=== PATIENT | male | born 1940 | race Caucasian/White ===

== ENCOUNTER 2018-01-26 07:46 | Day surgery (SDC) | payer MEDICARE, OTHER ==
[~2018-01-26] VITALS: Ht 177.8 cm; Wt 103.8 kg
[~2018-01-26 07:46] MED LIST: ALBU90OI6; AMLO10; ASPI81CH; CILO50; CLOP75; CLOP75 PO; EFFIENT10 MG PO; GLIM4; HYDACE10B; INSULANPEN SC; LISHYD2025; LOVA40; METF500; METO50; OMEP20ER; PLETAL
== END 2018-01-26 10:25 | disposition home or self-care (01) ==
LOC: ORSCSDS 07:46
PROVIDERS: Surgery
PROC: 0DBK8ZX Excision of Ascending Colon, Via Natural or Artificial Opening Endoscopic, Diagnostic (ICD-10-PCS; principal; 2018-01-26 09:45)
DX: Z12.11 Encounter for screening for malignant neoplasm of colon (principal); D12.2 Benign neoplasm of ascending colon; Z85.038 Personal history of other malignant neoplasm of large intestine; E11.9 Type 2 diabetes mellitus without complications; K21.9 Gastro-esophageal reflux disease without esophagitis; I10 Essential (primary) hypertension; I51.9 Heart disease, unspecified; Z79.01 Long term (current) use of anticoagulants; Z79.82 Long term (current) use of aspirin; Z79.4 Long term (current) use of insulin; Z79.899 Other long term (current) drug therapy
CPT/HCPCS: 82947; 88305; J7120

== ENCOUNTER 2018-04-01 08:34 | Day surgery (SDC) | payer MEDICARE, OTHER ==
[2018-04-01 10:22] LABS: Performing Lab VERACYTE; Test Name FNA
[2018-04-05 15:19] LABS: Result SEE PATHOTH RESULTS
== END 2018-04-01 22:48 | disposition home or self-care (01) ==
LOC: US 08:34
PROVIDERS: Internal Medicine
DX: E04.1 Nontoxic single thyroid nodule (principal); F17.210 Nicotine dependence, cigarettes, uncomplicated; I10 Essential (primary) hypertension; E11.42 Type 2 diabetes mellitus with diabetic polyneuropathy; Z95.5 Presence of coronary angioplasty implant and graft; Z85.46 Personal history of malignant neoplasm of prostate
CPT/HCPCS: 10022; 76942

== ENCOUNTER → 2018-08-13 | Outpatient (CLI) | payer MEDICARE, OTHER ==
[~2018-08-13] MED LIST changes: +AMLO5 PO; +Aspir 8181 MG PO; +Cilostazol50 MG PO; +GLIM4 PO; +LOVA40 PO; +METOPROLOL TART75 MG PO; +Metformin HCl1000 MG PO; +Norco 10-325 T1 EACH PO; +Omeprazole20 M1 PO; +ROPI.25 PO; +ZESTORETIC 20-251 EA PO
[2018-08-14 14:44] LABS: Stool Occult Bld Immuno 1 Negative (NEGATIVE)
== END | disposition home or self-care (01) ==
LOC: LAB 12:29 → LAB SHORT 12:29
PROVIDERS: Internal Medicine Gastroenterology
DX: D64.9 Anemia, unspecified (principal)
CPT/HCPCS: G0328

== ENCOUNTER → 2020-09-07 | Outpatient (CLI) | payer MEDICARE, OTHER | END | disposition home or self-care (01) | LOC: LAB SHORT 10:41 → LAB 10:41 | DX: E11.51 Type 2 diabetes mellitus with diabetic peripheral angiopathy without gangrene (principal); E11.42 Type 2 diabetes mellitus with diabetic polyneuropathy; B35.1 Tinea unguium; I70.213 Atherosclerosis of native arteries of extremities with intermittent claudication, bilateral legs; R20.0 Anesthesia of skin | CPT/HCPCS: 87070; 87077; 87147; 87186; 87205 ==

== ENCOUNTER → 2021-04-02 | Outpatient (CLI) | payer MEDICARE, OTHER ==
[2021-04-02 20:43] LABS: BASOPHILS ABSOLUTE AUTO 0.02 K/mm3 (0.00-0.23); BASOPHILS PERCENT AUTO 0 % (0-2); EOSINOPHILS PERCENT AUTO 0 % (0-6); Hematocrit 30.8 % (37.0-53.0); Hemoglobin 10.6 g/dL (13.5-17.5); IMMATURE GRAN ABSOLUTE AUTO 0.04 K/mm3 (0.00-0.10); IMMATURE GRAN PERCENT AUTO 0 % (0-1); LYMPHOCYTES ABSOLUTE AUTO 0.58 K/mm3 (0.84-5.20); LYMPHOCYTES PERCENT AUTO 5 % (21-46); MONOCYTES ABSOLUTE AUTO 0.74 K/mm3 (0.16-1.47); MONOCYTES PERCENT AUTO 7 % (4-13); Mean Corpuscular HGB Conc 34.4 g/dL (31.5-36.5); Mean Corpuscular Volume 90 fL (80-100); Mean Platelet Volume 11.7 fL (9.1-12.4); NEUTROPHILS ABSOLUTE AUTO 9.33 K/mm3 (1.96-9.15); NEUTROPHILS PERCENT AUTO 87 % (41-73); Platelet Count 258 K/mm3 (150-400); RDW Coefficient Variation 12.1 % (11.7-14.2); RDW Standard Deviation 39.9 fL (35.1-46.3); Red Blood Cell Count 3.42 M/mm3 (4.30-5.90); White Blood Cell Count 10.71 K/mm3 (4.00-11.30)
[2021-04-02 21:00] LABS: Albumin, Blood 1.9 g/dL (3.4-5.0); Albumin/Globulin Ratio 0.5 (0.8-1.8); Bilirubin, Total 0.3 mg/dL (0.1-1.0); Bun/Creatinine Ratio 17.3 (12.0-20.0); Calcium, Blood 8.2 mg/dL (8.5-10.1); Creatinine, Blood 1.33 mg/dL (0.60-1.20); Globulin, Blood 4.1 g/dL (2.2-4.0); Potassium, Blood 3.4 mmol/L (3.5-5.5)
== END | disposition home or self-care (01) ==
LOC: LAB SHORT 20:32 → LAB 20:32
PROVIDERS: Physician Assistant Medical
DX: J96.01 Acute respiratory failure with hypoxia (principal)
CPT/HCPCS: 80053; 85025

== ENCOUNTER → 2021-04-03 | Outpatient (CLI) | payer MEDICARE, OTHER ==
[~2021-04-03] MED LIST changes: +AMLODIPINE BESYL5 MG PO; +CILOSTAZOL PO; +GLIMEPIRIDE4 MG PO; +HYDROCODONE-AC1 EAC7 PO; +LISI20 PO; +LOVASTATIN40 MG PO; +METFORMIN HCL500 M2 PO; +METOPROLOL TART50 M5 PO; +MS Contin15 MG PO; +OMEP20ER PO; +PLAVIX75 MG PO
== END | disposition home or self-care (01) ==
LOC: LAB SHORT 13:27
DX: U07.1 COVID-19 (principal); J12.82 Pneumonia due to coronavirus disease 2019
CPT/HCPCS: 85379

== ENCOUNTER 2021-04-05 10:54 | Inpatient (IN) | payer MEDICARE, OTHER ==
[~2021-04-05] VITALS: Ht 177.8 cm; Wt 100.5 kg
[~2021-04-05 10:54] MED LIST changes: -AMLODIPINE BESYL5 MG PO; -CILOSTAZOL PO; -GLIMEPIRIDE4 MG PO; -HYDROCODONE-AC1 EAC7 PO; -LISI20 PO; -LOVASTATIN40 MG PO; -METFORMIN HCL500 M2 PO; -METOPROLOL TART50 M5 PO; -MS Contin15 MG PO; -OMEP20ER PO; -PLAVIX75 MG PO
[2021-04-05 11:17] LABS: BASOPHILS ABSOLUTE AUTO 0.01 K/mm3 (0.00-0.23); BASOPHILS PERCENT AUTO 0 % (0-2); EOSINOPHILS PERCENT AUTO 0 % (0-6); Hemoglobin 10.9 g/dL (13.5-17.5); IMMATURE GRAN ABSOLUTE AUTO 0.05 K/mm3 (0.00-0.10); IMMATURE GRAN PERCENT AUTO 1 % (0-1); LYMPHOCYTES ABSOLUTE AUTO 0.57 K/mm3 (0.84-5.20); LYMPHOCYTES PERCENT AUTO 6 % (21-46); MONOCYTES ABSOLUTE AUTO 0.43 K/mm3 (0.16-1.47); MONOCYTES PERCENT AUTO 4 % (4-13); Mean Corpuscular HGB 31.2 pg (26.0-34.0); Mean Corpuscular HGB Conc 35.2 g/dL (31.5-36.5); Mean Corpuscular Volume 89 fL (80-100); Mean Platelet Volume 11.4 fL (9.1-12.4); NEUTROPHILS ABSOLUTE AUTO 8.64 K/mm3 (1.96-9.15); NEUTROPHILS PERCENT AUTO 89 % (41-73); Platelet Count 278 K/mm3 (150-400); RDW Coefficient Variation 12.2 % (11.7-14.2); RDW Standard Deviation 40.1 fL (35.1-46.3); Red Blood Cell Count 3.49 M/mm3 (4.30-5.90)
[2021-04-05] MEDS ORDERED: MS Contin15 MG PO (12:27)
[2021-04-05] MEDS ORDERED: METFORMIN HCL500 M2 PO (12:27)
[2021-04-05] MEDS ORDERED: GLIMEPIRIDE4 MG PO (12:28)
[2021-04-05] MEDS ORDERED: LOVASTATIN40 MG PO (12:28)
[2021-04-05] MEDS ORDERED: CILOSTAZOL PO (12:28)
[2021-04-05] MEDS ORDERED: HYDROCODONE-AC1 EAC7 PO (12:28)
[2021-04-05] MEDS ORDERED: OMEP20ER PO (12:29)
[2021-04-05] MEDS ORDERED: METOPROLOL TART50 M5 PO (12:29)
[2021-04-05] MEDS ORDERED: AMLODIPINE BESYL5 MG PO (12:29)
[2021-04-05] MEDS ORDERED: LISI20 PO (12:29)
[2021-04-05] MEDS ORDERED: PLAVIX75 MG PO (12:29)
[2021-04-05 12:31] LABS: Albumin, Blood 1.7 g/dL (3.4-5.0); Albumin/Globulin Ratio 0.4 (0.8-1.8); Bilirubin, Total 0.3 mg/dL (0.1-1.0); Bun/Creatinine Ratio 20.5 (12.0-20.0); Calcium, Blood 8.1 mg/dL (8.5-10.1); Creatinine, Blood 1.61 mg/dL (0.60-1.20); Globulin, Blood 4.2 g/dL (2.2-4.0); Potassium, Blood 3.2 mmol/L (3.5-5.5); Total Protein, Blood 5.9 g/dL (6.4-8.2)
[2021-04-05 12:39] LABS: Troponin I 1.03 ng/mL (0.000-0.040)
--- NOTE | 2021-04-05 17:46 | NUR ---
[id number]: PT ARRIVED FROM THE ED WITH COVID WITH WORSENING CXR, HE IS FULLY VACCINATED WITH MODERNA, HE ARRIVES ON HIGH FLOW O2 AT 55L/85%, SPO2 IN THE MID 90S, PT IS EXTREMELY WEAK, HAVING TROUBLE EVEN LIFTING ARMS AND LEGS ON BED, HE STATES THAT HE FELL AT HOME 2 DAYS AGO AND HAS A SKIN TEAR ON HIS RFA, THIS IS WRAPPED CURRENTLY. PT PLACED ON MONITOR, NSR WITH HR IN THE 90S, OCCASIONAL PVCS, PT MODERATELY HYPERTENSIVE, TROPONIN LEVEL WAS POSITIVE AND PT HAS A HX OF CAD WITH PREVIOUS STENTING, HE DENIES CHEST PAIN OR DISCOMFORT, SECOND TROPONIN DRAWN AND WILL REPEAT AT 2300. PT WAS HYPOGLYCEMIC IN THE ED, BLOOD SUGAR OF 56, HAD SOME JUICE AND YOGURT AND CBG JUST PRIOR TO ARRIVAL WAS 85. PT RECEIVED FIRST DOSE OF REMDESIVIR IN THE ED
[2021-04-05 23:15] LABS: Source, Urine Clean Catch
--- NOTE | 2021-04-05 23:22 | NUR ---
BRAN PLACEMENT 16 FR BRAN CATHETER PLACED, STERILE FIELD MAINTAINED, 900 ML'S CLEAR YELLOW URINE EMPTIED FROM COLLECTION BAG, URINE SAMPLE SENT.
[2021-04-05 23:28] LABS: Bilirubin, Urine Neg (Neg); Blood, Urine 1+ (Neg); Glucose Qualitative, Urine Neg (Neg); Ketones, Urine Neg (Neg); Leukocyte Esterase, Urine Neg (Neg); Nitrite, Urine Neg (Neg); Protein, Urine 4+ (Neg); Specific Gravity, Urine 1.015 (1.003-1.022); Urobilinogen, Urine NORM (Normal)
[2021-04-05 23:46] LABS: Amorphous Light (0-Heavy); Appearance, Urine Clear (Clear); Bacteria Not Seen /hpf; Color, Urine Yellow (P-Yellow); Squamous Epithelial Cells Not Seen /hpf (Few); White Blood Cells, Urine Rare /hpf (0-5)
--- NOTE | 2021-04-06 01:51 | NUR ---
HOSPITALIST NOTIFIED PT'S RESP STATUS IS SLOWLY DECREASING. PT IS GETTING TIRED & RESP EFFORT IS WEAK. SPO2 FLUCTUATES BETWEEN 85-92%. PT WILL COUGH & DB WITH EXTENSIVE ENC, COUGH IS PRODUCTIVE, MUCOUS THICK,PINK TINGED. PT FALLS RIGHT BACK TO SLEEP AFTER ANY STIMULATION. RESPIRATIONS 24-35/MIN. LUNG SOUNDS REMAIN COARSE/DIM IN BILATERAL BASES. RT NOTIFED, BIPAP PLACED 06/10.
[2021-04-06 03:55] LABS: Base Excess Venous -0.7 mmol/L; Bicarbonate Venous 23.3 mmol/L (24.0-30.0); PCO2 Venous 36.2 mmHg (38-42); PO2 Venous 30.4 mmHg (38-42); pH Blood Venous 7.42 (7.34-7.37)
[2021-04-06 04:22] LABS: BASOPHILS ABSOLUTE AUTO 0.01 K/mm3 (0.00-0.23); BASOPHILS PERCENT AUTO 0 % (0-2); EOSINOPHILS PERCENT AUTO 0 % (0-6); Hematocrit 33.4 % (37.0-53.0); Hemoglobin 11.3 g/dL (13.5-17.5); IMMATURE GRAN ABSOLUTE AUTO 0.06 K/mm3 (0.00-0.10); IMMATURE GRAN PERCENT AUTO 1 % (0-1); LYMPHOCYTES ABSOLUTE AUTO 0.66 K/mm3 (0.84-5.20); LYMPHOCYTES PERCENT AUTO 7 % (21-46); MONOCYTES ABSOLUTE AUTO 0.34 K/mm3 (0.16-1.47); MONOCYTES PERCENT AUTO 3 % (4-13); Mean Corpuscular HGB 30.1 pg (26.0-34.0); Mean Corpuscular HGB Conc 33.8 g/dL (31.5-36.5); Mean Corpuscular Volume 89 fL (80-100); Mean Platelet Volume 11.5 fL (9.1-12.4); NEUTROPHILS ABSOLUTE AUTO 8.79 K/mm3 (1.96-9.15); NEUTROPHILS PERCENT AUTO 89 % (41-73); Platelet Count 271 K/mm3 (150-400); RDW Coefficient Variation 12.3 % (11.7-14.2); RDW Standard Deviation 40.3 fL (35.1-46.3); Red Blood Cell Count 3.76 M/mm3 (4.30-5.90); White Blood Cell Count 9.86 K/mm3 (4.00-11.30)
[2021-04-06 04:47] LABS: Albumin, Blood 1.7 g/dL (3.4-5.0); Albumin/Globulin Ratio 0.4 (0.8-1.8); Bilirubin, Total 0.5 mg/dL (0.1-1.0); Bun/Creatinine Ratio 22.6 (12.0-20.0); Calcium, Blood 8.4 mg/dL (8.5-10.1); Creatinine, Blood 1.37 mg/dL (0.60-1.20); Globulin, Blood 4.4 g/dL (2.2-4.0); Magnesium, Blood 2.1 mg/dL (1.6-2.4); Potassium, Blood 3.6 mmol/L (3.5-5.5); Total Protein, Blood 6.1 g/dL (6.4-8.2)
--- NOTE | 2021-04-06 06:36 | NUR ---
SHIFT SUMMARY PT REMAINS A&O X3. PT WAS PLACED ON BIPAP THROUGH THE NIGHT DUE TO DECREASED RESP EFFORT & DESATURATION. BIPAP 12/8 FIO2 80%, LUNGS DIMISHED/COARSE BILATERAL. SPO2 REMAINS >90% AFTER BIAP PLACEMENT. RESP 24-35, PT AWAKE THIS AM & APPEARS TO BE MORE RESTED. PT IS TOLERATING PO INTAKE WHILE AWAKE WITH NO SWALLOWNG PROBLEMS. BP REMAINS ELEVATED, 10 MG IV HYDRALIZINE GIVEN X2, NS INFUSING PER EMAR, BRAN REMAINS PATENT, CLEAR YELLOW URINE NOTED. PT REPOSITIONED Q2 HRS. DENIES PAIN. CALL LIGHT IN REACH. WILL REPORT TO DAY RN.
--- NOTE | 2021-04-06 10:19 | NUR ---
PHONE UPDATE PROVIDED TO PT'S DAUGHTER ZUHAIR WITH OTHER DAUGHTER AND ON SPEAKER PHONE, QUESTIONS ANSWERED TO SATISFACTION.
--- NOTE | 2021-04-06 18:18 | NUR ---
SHIFT SUMMARY PT ON BIPAP THIS SHIFT, WOULD ONLY TOLERATE COMING OFF OF THE BIPAP OVER TO AIRVO FOR MINUTES AT A TIME BEFORE O2 SATURATION WOULD DROP TO LOW 70s/HIGH 60s. END OF SHIFT BIPAP SETTINGS 95% O2, 18/04. PT REMAINS ALERT AND ORIENTED THROUGHOUT THE SHIFT, ABLE TO HOLD SHORT CONVERSATIONS WITH STAFF D/T BIPAP MASK. EDUCATED ON THE IMPORTANCE OF REPOSITIONING AND DEEP BREATHING, PT ASSISTED WITH REPOSITIONING TO ALTERNATING SIDES T/O SHIFT. PT HAD PRODUCTIVE COUGH AT TIMES, BROWN/PINK SPUTUM NOTED. BRAN DRAINING TO GRAVITY, CLEAR YELLOW URINE OUTPUT NOTED.
[2021-04-07 04:08] LABS: Base Excess Venous -4.1 mmol/L; PCO2 Venous 26.1 mmHg (38-42); PO2 Venous 79.1 mmHg (38-42); pH Blood Venous 7.48 (7.34-7.37)
[2021-04-07 04:29] LABS: Hematocrit 32.2 % (37.0-53.0); Hemoglobin 10.8 g/dL (13.5-17.5); Mean Corpuscular HGB 30.4 pg (26.0-34.0); Mean Corpuscular HGB Conc 33.5 g/dL (31.5-36.5); Mean Corpuscular Volume 91 fL (80-100); Mean Platelet Volume 11.7 fL (9.1-12.4); Platelet Count 250 K/mm3 (150-400); RDW Coefficient Variation 12.5 % (11.7-14.2); RDW Standard Deviation 42.2 fL (35.1-46.3); Red Blood Cell Count 3.55 M/mm3 (4.30-5.90); White Blood Cell Count 7.94 K/mm3 (4.00-11.30)
--- NOTE | 2021-04-07 04:47 | NUR ---
WAS ABLE TO TITRATE PT'S BIPAP SETTINGS TO BIPAP 14/10 FIO2 85% WITH SATS OF 95%. WILL CONTINUE TO MONITOR.
[2021-04-07 04:50] LABS: Bun/Creatinine Ratio 30.8 (12.0-20.0); Creatinine, Blood 1.3 mg/dL (0.60-1.20); Potassium, Blood 3.9 mmol/L (3.5-5.5)
--- NOTE | 2021-04-07 06:10 | NUR ---
SHIFT SUMMARY PT IS ALERT AND ORIENTED. THERE HAVE BEEN NO ACUTE CHANGES. PT HAS TOLERATED WELL BEING ON BIPAP. HE IS CURRENTLY ON 18/04 WITH 80% FIO2 WITH SATS ABOVE 92%. PT WAS ABLET TO TOLERATE THE AIRVO LAST NIGHT FOR A SNACK WITHOUT DESATING. VITALS HAVE REMAINED STABLE. PT DENIES CHEST PAIN/PRESSURE. BRAN IS IN PLACE AND DRAINING TO GRAVITY. CALL LIGHT IS WITHIN REACH. WILL CONTINUE TO MONITOR.
--- NOTE | 2021-04-07 10:23 | NUR ---
PT ABLE TO TOLERATE ORAL INTAKE WITH BREAKFAST WHILE ON AIRVO, SEE RT NOTES FOR SETTIGNS. AT THIS TIME PT O2 DECREASED TO LOW 80S, CHANGED BACK TO BIPAP.
--- NOTE | 2021-04-07 18:07 | NUR ---
SHIFT SUMMARY NO ACUTE EVENTS THIS SHIFT, VSS. PT IS ALERT AND ORIENTED, CALLS APPROPRIATELY. PT REMAINED ON BIPAP THIS SHIFT, ABLE TO TOLERATE BREAKS ON AIRVO FOR ORAL INTAKE AT MEALTIME, BUT APPEARS TO HAVE A POOR APPETITE. END OF SHIFT BIPAP SETTIGNS 18/04 AT 80%. PT DENIED CHEST PAIN/PRESSURE, DENIED OVERAL DISCOMFORT. PT WAS ABLE TO REPOSITION SELF WITH SOME ASSISTANCE FROM STAFF.
[2021-04-08 04:17] LABS: Albumin, Blood 1.4 g/dL (3.4-5.0); Anion Gap 10 mmol/L (6-16); Blood Urea Nitrogen 43 mg/dL (8-24); Bun/Creatinine Ratio 33.3 (12.0-20.0); CO2, Blood 20 mmol/L (21-32); Calcium, Blood 7.9 mg/dL (8.5-10.1); Chloride, Blood 109 mmol/L (98-108); Creatinine, Blood 1.29 mg/dL (0.60-1.20); Glomerular Filtration Rate 54 (60-); Glucose, Blood 317 mg/dL (70-99); Phosphorus, Blood 3.9 mg/dL (2.5-4.9); Potassium, Blood 3.8 mmol/L (3.5-5.5); Sodium, Blood 139 mmol/L (136-145)
--- NOTE | 2021-04-08 05:05 | NUR ---
SHIFT SUMMARY PT A/OX4. ALERT, CALM AND COOPERATIVE. ON BIPAP T/O THE NIGHT FIO2 70% MAINTAINING O2 ABOVE 92%. ON TELE NSR IN THE 70'S. GOOD PO INTAKE. BRAN IN PLACE; YELLOW URINE OUTPUT. CHANGED DRESSING ON RIGHT FOREARM; SKIN TEAR. DRY SKIN; NOTED SMALL BRUISES. REFUSED PRONING EVEN THOUGH EDUCATED ON IMPORTANCE TO HELP WITH BREATHING. DOES HELP LAY ON HIS SIDES. SCD'S IN PLACE; DID REMOVE FOR AWHILE FOR PT COMFORT. NO ACUTE CHANGES. BLOOD SUGARS WERE IN THE HIGH 300'S AND NOTIFIED HOSPITALIST; MED. ORDERS WERE GIVEN. WILL CONT. WITH PLAN OF CARE.
--- NOTE | 2021-04-08 13:32 | NUR ---
PT ALERT AND ORIENTED X3-4. NEURO WNL. DENIES NUMBNESS/TINGLING. ABLE TO MOVE ALL EXTREMITIES IN BED. PERRLA. TELE SHOWING SINUS WITH PAC'S HR 80'S. DENIES CHEST PAIN/PRESSURE. ON BIPAP THIS AM SETTINGS 14/10 AT 70%. ABLE TO TRANSFER TO HIGH FLOW AT 65L AND 70% SATING LOW 90'S. ON HF NC DURING MEALS. LUNGS SOUNDING DIMINISHED. OCCASIONAL COUGH WITH SMITH TINGED SPUTUM. EATING SMALL AMOUNTS OF MEAL, TOLERATING DIET. SKIN OVERALL FRAGILE, SKIN TEAR TO LEFT FOREARM. CLEANED AND WRAPPED. ACHS BLOOD SUGARS, CHANGED TO Q6 BLOOD SUGARS. Q2 TURNING. CALL LIGHT IN REACH. SPOKE WITH DR. MOFFETT ON PHONE FOR UPDATE. BOWEL TONES PRESENT. BRAN CATH IN PLACE DRAINING TO GRAVITY. REMDESIVIR INFUSED. NS INFUSING AT 50 ML/HR. CALL LIGHT IN REACH.
--- NOTE | 2021-04-08 18:32 | NUR ---
SHIFT SUMMARY: NO ACUTE CHANGES SEE PREVIOUS NOTE. BIPAP AND HIGH FLOW NASAL CANNULA SETTINGS REMAIN THE SAME. PATIENT ON HIGH FLOW NASAL CANNULA 65L AT 70-80% FOR MOST OF THE DAY SHIFT SATING LOW 90'S. DENIES OVERALL PAIN. TELE REMAINS SINUS IN THE 80'S. BRAN CATH IN PLACE. NS INFUSING. EATING SMALL AMOUNTS AND DRINKING WATER WITH MEALS. CALL LIGHT IN REACH. WILL CONTINUE TO MONITOR AND REPORT OFF.
[2021-04-09 04:01] LABS: Hemoglobin 11.7 g/dL (13.5-17.5); Mean Corpuscular HGB Conc 33.4 g/dL (31.5-36.5); Mean Corpuscular Volume 90 fL (80-100); Mean Platelet Volume 11.5 fL (9.1-12.4); Platelet Count 327 K/mm3 (150-400); RDW Coefficient Variation 12.7 % (11.7-14.2); RDW Standard Deviation 42.4 fL (35.1-46.3); White Blood Cell Count 12.85 K/mm3 (4.00-11.30)
[2021-04-09 04:21] LABS: Albumin, Blood 1.7 g/dL (3.4-5.0); Anion Gap 9 mmol/L (6-16); Blood Urea Nitrogen 39 mg/dL (8-24); Bun/Creatinine Ratio 34.8 (12.0-20.0); CO2, Blood 20 mmol/L (21-32); Calcium, Blood 8.2 mg/dL (8.5-10.1); Chloride, Blood 113 mmol/L (98-108); Creatinine, Blood 1.12 mg/dL (0.60-1.20); Glomerular Filtration Rate >60 (60-); Glucose, Blood 223 mg/dL (70-99); Phosphorus, Blood 3.6 mg/dL (2.5-4.9); Potassium, Blood 3.8 mmol/L (3.5-5.5); Sodium, Blood 142 mmol/L (136-145)
--- NOTE | 2021-04-09 05:38 | NUR ---
SHIFT SUMMARY PT A/OX3-4 AT TIMES FORGETFUL. CALLS APPROPRIATELY. ON TELE NSR 70'S-80'S. ON HFNC 65L AND 85% FIO2, DOES DESAT QUICKLY IN LOW 80'S-HIGH 70'S AND TAKES 1-2 MINT. WITH 100% FIO2 TO HELP HIM RECOVER. EDUCATED ON IMPORTANCE OF PRONING AND CONT. TO REFUSE. BRAN IN PLACE; YELLOW COLOR URINE. BLOOP PRESSURES REMAINED ELEVATED T/O THE NIGTH; HOSPITALIST WAS NOTIFIED AND MEDS GIVEN PER ORDERS. BUE AND BLE SKIN DRY AND WARM TO TOUCH. DRESSING C/D/I IN R. FA AND PREVENTATIVE FOAM DRESSING ON COCCYX AREA. SCD'S WERE WORN MOST OF THE NIGHT; THIS MORNING WANTED A BREAK. WILL CONT. WITH PLAN OF CARE.
--- NOTE | 2021-04-09 08:00 | NUR ---
pt laying in bed with eyes closed, wakes easily but is drowsy, poor appetite, lungs have exp wheeze t/o, resp even and unlabored at rest, no cough noted, hrr, tele in place running sr with pac's, no edema noted, ppp+1, cap refill <3sec. vs stable, afebrile, iv site is clear and patent, btx4, abd flat soft nontender, voids via vernon cath draining clear yellow urine, skin c/w/d, justin ulloa, call light in reach.
--- NOTE | 2021-04-09 18:20 | NUR ---
PT HAS BEEN SLEEPY ALL DAY, RESTING WHEN LEFT UNDISTURBED, WAS AWAKE AND UNCOMFORTABLE AROUND 1700, GAVE A NORCO WITH GOOD RELIEF, B/P WENT OVER 170 THIS AFTERNOON AND TREATED WITH HYDRALAZINE, POOR APPETITE, ASSISTED WITH EATING TO HELP ENCOURAGE INTAKE, ONLY TOOK 10% OF DINNER. CALL LIGHT IN REACH.
[2021-04-10 03:49] LABS: Hematocrit 34.4 % (37.0-53.0); Hemoglobin 11.5 g/dL (13.5-17.5); Mean Corpuscular HGB 29.9 pg (26.0-34.0); Mean Corpuscular HGB Conc 33.4 g/dL (31.5-36.5); Mean Corpuscular Volume 89 fL (80-100); Mean Platelet Volume 11.5 fL (9.1-12.4); Platelet Count 294 K/mm3 (150-400); RDW Coefficient Variation 13.1 % (11.7-14.2); RDW Standard Deviation 43.2 fL (35.1-46.3); Red Blood Cell Count 3.85 M/mm3 (4.30-5.90); White Blood Cell Count 14.74 K/mm3 (4.00-11.30)
--- NOTE | 2021-04-10 03:57 | NUR ---
PT HAS EPISODES OF DESATURATION WITH BED MOBILIT ASSISTANCE. ON HFNC 60L 80% REQUIRING INCREASE TO 85% WITH ACTIVITY. REQUIRED INCREASE TO 90% AFTER HFNC ACCIDENTALLY REMOVED BY PATIENT. O2 SAT DROPPED TO 76% ON RA. PT AGGREABLE TO USING BIPAP FOR A SHORT TIME AFTER THIS EVENT, THEN RETURNED TO HFNC 60L 90% O2 SAT MAINTAINED 88%. PT EXPRESSING SEVERE HIP/SACRUM/PELVIC PAIN 02/12. ADMINISTERED MS COTIN AND HYDROCODONE. PT EXPRESSES LITTLE RELIEF, BUT IS ABLE TO FALL ASLEEP FOR SHORT PERIODS. BLAWNCHAB;E REDNESS BILATERAL HEELS- KEEP FLOATED- WILL NOTIFY DAY TEAM. sPOKE WITH DAUGHTER ZUHAIR, PT EXPRESSES FEELING TO TIRED TO CALL FAMILY AT NIGHT. PLAN FOR CALL TODAY.
[2021-04-10 04:06] LABS: Albumin, Blood 1.7 g/dL (3.4-5.0); Anion Gap 8 mmol/L (6-16); Blood Urea Nitrogen 44 mg/dL (8-24); Bun/Creatinine Ratio 38.9 (12.0-20.0); CO2, Blood 21 mmol/L (21-32); Calcium, Blood 8.3 mg/dL (8.5-10.1); Chloride, Blood 116 mmol/L (98-108); Creatinine, Blood 1.13 mg/dL (0.60-1.20); Glomerular Filtration Rate >60 (60-); Glucose, Blood 238 mg/dL (70-99); Phosphorus, Blood 3.8 mg/dL (2.5-4.9); Potassium, Blood 3.8 mmol/L (3.5-5.5); Sodium, Blood 145 mmol/L (136-145)
--- NOTE | 2021-04-10 13:40 | NUR ---
UPDATE FAMILY UPDATED ON PT. INGRID MOFFETT IS CONCERNED THAT PT IS BEGINNING TO HAVE DEPRESSION AND WANTED PHYSICIAN UPDATED. FAMILY REQUESTING ZOOM CALL. PHYSICIAN UPDATED. ZOOM CALL TO BE DONE WITH NATIONAL GUARD THIS AFTERNOON. FAMILY REQUESTING DAILY UPDATED FROM PHYSICIAN. PHYSICIAN NOTIFIED.
--- NOTE | 2021-04-10 18:29 | NUR ---
SHIFT SUMMARY PT ALERT. CONFUSED AT TIMES. BED ALARM IN PLACE FOR PT SAFETY. PT HAS POOR PO INTAKE T/O SHIFT. ENCOURAGED INTAKE OF GLUCERNA AND WATER. HR STABLE. BP STABLE. HYPERTENSIVE AT TIMES, MEDICATED PER EMAR. SEE EHR. OXYGEN SATURATION MAINTIANED T/O SHIFT ABOVE 90% ON BIPAP, SEE RT NOTES FOR SETTINGS. PT UNABLE TO TOLERATE EXTENDED PERIODS OF TIME ON AIRVO. PT REFUSING TURNS AND BATH. PT ASSISTING IN BOOSTS IN BED. HEEL PROTECTORS IN PLACE. PT'S FAMILY EXPRESSES CONCERN REGARDING PT BEING UNABLE TO SEE FAMILY MEMBERS. PHYSICIAN FACILITATED FACETIME CALL FOR PT AND FAMILY. FAMILY UPDATED T/O SHIFT. PHYSICIAN NOTIFIED FAMILY'S CONCERS REGARDING PT CONT TO HAVE MENTAL DECLINE AND BE DEVELOPING POSSIBLE DEPRESSION. ORDERS TO BE PLACED PER PHYSICIAN. PT PULLED BIPAP OFF THIS EVENING BEFORE DINNER. STATING HE CANNOT BREATH. PT RAPIDLY BEGAN TO DESAT DOWN TO 40%. BIPAP IMMEDIATELY PUT BACK ON PT. PT'S O2 NOW AT 95%. PT NO LONGER ANXIOUS AND RESTING. STATED HE WAS IN PAIN. MEDICATED PER EMAR. WILL CONT TO MONITOR UNTIL REPORT GIVEN TO NIGHTSHIFT RN.
[2021-04-11 07:11] LABS: Hematocrit 31.2 % (37.0-53.0); Hemoglobin 10.5 g/dL (13.5-17.5); Mean Corpuscular HGB 29.7 pg (26.0-34.0); Mean Corpuscular HGB Conc 33.7 g/dL (31.5-36.5); Mean Corpuscular Volume 88 fL (80-100); Mean Platelet Volume 11.3 fL (9.1-12.4); Platelet Count 184 K/mm3 (150-400); RDW Coefficient Variation 14.1 % (11.7-14.2); RDW Standard Deviation 45.8 fL (35.1-46.3); Red Blood Cell Count 3.53 M/mm3 (4.30-5.90); White Blood Cell Count 18.51 K/mm3 (4.00-11.30)
--- NOTE | 2021-04-11 07:39 | NUR ---
ASSUMED CARE: PT RESTING QUIETLY AT THIS TIME. ON BIPAP OF 18/04 WITH 90% FIO2. NSR ON TELE. NO ACUTE NEEDS AT THIS TIME.
--- NOTE | 2021-04-11 14:54 | NUR ---
PT HAD A MOMENT OF CONFUSION AND PULLED BIPAP MASK OFF. BEGAN DESATURATING INTO 70S. RN WENT INTO ROOM AND REORIENTED PT AND STAYED AT BEDSIDE. PACKAGER MACHINE CAME IN TO ASSIST WITH REPOSITIONING. THIS RN CALLED DR MILLS TO REPORT PT'S CONFUSION. RECIEVED ORDER FOR ATIVAN WHICH WAS ADMINISTERED. PT RESTING QUIETLY NOW.
--- NOTE | 2021-04-11 19:19 | NUR ---
0715-Rec'd pt this morning, lethargic but able to respond to simple commands. Pt is on BIPAP with FI02 of 90% that wa titrated down to 70%. Pt had an episode of restlessness and agitation, removed BIPAP tube/connector, reoriented pt to environment, staff and situation, ativan 1mg IV was administered with relief. Pt's granddaughter updated on pt's status. Pt remains lethargic but responsive to minimal stimuli. VSS with intermittent drop in Sp02. Oral care done this shift, endorsed pt care to overnight caregiver RN.
[2021-04-12 04:04] LABS: BASOPHILS ABSOLUTE AUTO 0.04 K/mm3 (0.00-0.23); BASOPHILS PERCENT AUTO 0 % (0-2); EOSINOPHILS PERCENT AUTO 0 % (0-6); Hematocrit 29.4 % (37.0-53.0); Hemoglobin 9.7 g/dL (13.5-17.5); IMMATURE GRAN ABSOLUTE AUTO 0.49 K/mm3 (0.00-0.10); IMMATURE GRAN PERCENT AUTO 2 % (0-1); LYMPHOCYTES ABSOLUTE AUTO 0.72 K/mm3 (0.84-5.20); LYMPHOCYTES PERCENT AUTO 4 % (21-46); MONOCYTES ABSOLUTE AUTO 0.82 K/mm3 (0.16-1.47); MONOCYTES PERCENT AUTO 4 % (4-13); Mean Corpuscular HGB 29.5 pg (26.0-34.0); Mean Corpuscular Volume 89 fL (80-100); NEUTROPHILS ABSOLUTE AUTO 18.07 K/mm3 (1.96-9.15); NEUTROPHILS PERCENT AUTO 90 % (41-73); NRBC ABSOLUTE 0.02 K/mm3 (0.00-0.02); NRBC Auto 0.1 /100 WBC (0.0-0.2); Platelet Count 135 K/mm3 (150-400); RDW Coefficient Variation 14.1 % (11.7-14.2); RDW Standard Deviation 46.1 fL (35.1-46.3); Red Blood Cell Count 3.29 M/mm3 (4.30-5.90); White Blood Cell Count 20.14 K/mm3 (4.00-11.30)
[2021-04-12 04:25] LABS: Albumin, Blood 1.5 g/dL (3.4-5.0); Anion Gap 8 mmol/L (6-16); Blood Urea Nitrogen 72 mg/dL (8-24); Bun/Creatinine Ratio 46.2 (12.0-20.0); CO2, Blood 21 mmol/L (21-32); Chloride, Blood 119 mmol/L (98-108); Creatinine, Blood 1.56 mg/dL (0.60-1.20); Glomerular Filtration Rate 43 (60-); Glucose, Blood 114 mg/dL (70-99); Magnesium, Blood 2.8 mg/dL (1.6-2.4); Potassium, Blood 3.4 mmol/L (3.5-5.5); Sodium, Blood 148 mmol/L (136-145)
--- NOTE | 2021-04-12 05:45 | NUR ---
SHIFT SUMMARY PATIENT IS A CONFUSED MAN ONLY ORIENTED TO SELF, AROUSABLE TO VERBAL STIMULI, FOLLOWING SOME COMMANDS, WITH GENERALIZED WEAKNESS. VERY ANXIOUS AND RESTLESS UPON WAKING SO PRN ATIVAN Q4H HELPING WITH THIS.OTHERWISE IS GRABBING AT MASK CONSTANTLY. ON BIPAP WITH SETTING OF 14/10 AND FI02 50% SATING MID 90'S ALL SHIFT. DESATS WITH MINIMAL EXERTION. WAS ABLE TO TAKE OFF BIPAP MASK AND PUT ON AIRVO WITH MAX SETTINGS TO TAKE ORAL MEDS AND SOME WATER FOR ABOUT 20 MIN BEFORE NEEDED MASK BACK ON D/T DESATING. PRODUCTIVE COUGH. COARSE BREATH SOUNDS T/O. VSS. SR WITH PVC'S ON THE MONITOR, TACHY AT TIMES. NPO UNTIL O2 DEMANDS ARE DOWN. BRAN PATENT DRAINING TO GRAVITY. Q2H TURNS AND ORAL CARE PERFORMED. NO ACUTE CONCERNS AT THIS TIME. WILL CONTINUE PLAN OF CARE UNTIL REPORT GIVEN TO PEREZ RN.
--- NOTE | 2021-04-12 14:14 | NUR ---
Case Conference Note Spoke with ICU critical care physician assistant Chari and discussed case. Pt's respiratory status is declining and possibility of transfer to ICU and intubation may be needed. Spoke with Primary RNs Shubham and Imani. Discussed case. Pt on BIPAP at 80% and is restrained due to attempts of tearing off mask. Pt confused and somnolent. Called and spoke with Pt's spouse Catalina. Provided update and discussed Pt's wishes and escalation of care if needed. Catalina states thinking Pt would want intubation but request this RN to call daughter to confirm. Offered therapeutic listening and answered questions. Catalina expresses appreciation of call. Called and spoke with Pt's daughter Gena. Gena reports Pt would want intubation. Offered therapeutic listening and emotional support as Gena is intermittently tearful. Gena reports working as an ICU nurse where she lives. Continued therapeutic listening. Gena reports plan to visit during visiting hours and expresses appreciation of call. Palliative Care will remain available.
--- NOTE | 2021-04-12 19:22 | NUR ---
0715-Rec'd pt this morning. Remains on BIPAP, uses accesoory and abdominal muscles sometimes, pt is constantly pulling off telemonitor cables and BIPAP tube, reoriented pt to staff, facility and self but with no improvement, repositioned him but behavior unchanged, order was rec'd for NV soft wrist-bilateral restraints. Pt became calm and was sleeping after initiating restraints. Pt's daughter was at bedside at around 1400 and left at 1800. Pt was fine while daughter was present but became more agitated after daughter left, O2 sat dropped to 82%, increased FI02 to 100%, administered Ativan 1mg but with no relief, reposition pt at 1825 and is behavior is improving, however work of breathing is getting worse. He remains aox1, BP stable, Sp02 of 88 to 92% with current FI02 of 70%, dry cleaning machine operator aware of pt's status, endorsed care to fast food shift supervisor RN.
[2021-04-13 04:44] LABS: BASOPHILS ABSOLUTE AUTO 0.01 K/mm3 (0.00-0.23); BASOPHILS PERCENT AUTO 0 % (0-2); EOSINOPHILS PERCENT AUTO 0 % (0-6); Hematocrit 23.7 % (37.0-53.0); Hemoglobin 7.9 g/dL (13.5-17.5); IMMATURE GRAN ABSOLUTE AUTO 0.33 K/mm3 (0.00-0.10); IMMATURE GRAN PERCENT AUTO 2 % (0-1); LYMPHOCYTES ABSOLUTE AUTO 0.37 K/mm3 (0.84-5.20); LYMPHOCYTES PERCENT AUTO 3 % (21-46); MONOCYTES ABSOLUTE AUTO 0.45 K/mm3 (0.16-1.47); MONOCYTES PERCENT AUTO 3 % (4-13); Mean Corpuscular HGB Conc 33.3 g/dL (31.5-36.5); Mean Corpuscular Volume 90 fL (80-100); NEUTROPHILS ABSOLUTE AUTO 13.67 K/mm3 (1.96-9.15); NEUTROPHILS PERCENT AUTO 92 % (41-73); NRBC ABSOLUTE 0.02 K/mm3 (0.00-0.02); NRBC Auto 0.1 /100 WBC (0.0-0.2); Platelet Count 83 K/mm3 (150-400); RDW Coefficient Variation 14.5 % (11.7-14.2); RDW Standard Deviation 47.4 fL (35.1-46.3); Red Blood Cell Count 2.63 M/mm3 (4.30-5.90); White Blood Cell Count 14.83 K/mm3 (4.00-11.30)
[2021-04-13 04:55] LABS: Alanine Aminotransfer (ALT/SGP 21 U/L (12-78); Albumin, Blood 1.2 g/dL (3.4-5.0); Albumin/Globulin Ratio 0.4 (0.8-1.8); Alk Phos 151 U/L (50-136); Anion Gap 8 mmol/L (6-16); Aspartate Aminotrans (AST/SGOT 33 U/L (12-37); Bilirubin, Total 1.1 mg/dL (0.1-1.0); Blood Urea Nitrogen 76 mg/dL (8-24); Bun/Creatinine Ratio 44.4 (12.0-20.0); CO2, Blood 20 mmol/L (21-32); Calcium, Blood 7.8 mg/dL (8.5-10.1); Chloride, Blood 122 mmol/L (98-108); Creatinine, Blood 1.71 mg/dL (0.60-1.20); Globulin, Blood 3.2 g/dL (2.2-4.0); Glomerular Filtration Rate 39 (60-); Glucose, Blood 271 mg/dL (70-99); Magnesium, Blood 2.8 mg/dL (1.6-2.4); Phosphorus, Blood 4.4 mg/dL (2.5-4.9); Sodium, Blood 150 mmol/L (136-145); Total Protein, Blood 4.4 g/dL (6.4-8.2); Triglycerides 167 mg/dL (30-160)
--- NOTE | 2021-04-13 06:33 | NUR ---
SHIFT SUMMARYT PATIENT IS A CONFUSED MAN WHO IS ONLY ORIENTED TO SELF, AROUSABLE TO VERBAL STIMULI, FOLLOWING SOME COMMANDS, WITH GEN WEAKNESS. VERY ANXIOUS AND RESTLESS WITH NO RELIEF WITH ATIVAN OR RESTRAINTS PATIENT FLAILING IN BED AND GRABBING AT MASK. MD INFORMED AND DALTONX DRIP STARTED TO REDUCE THIS AGIATION WHILE ON BIPAP. TOLERATING THIS WELL. VSS. ON BIPAP WITH SETTINGS 12/8 AND FIO2 70% SATING MID 90'S ALL SHIFT. WITH PRECEDEX SATS MAITAINED ALL NIGHT. HACKING, NONPRODUCTIVE COUGH. SR WITH PVC'S ON THE MONITOR. NPO AND HOLDING ORAL MEDS UNTIL O2 DEMANDS DOWN. BRAN PATENT DRAINING TO GRAVITY. Q2H TURNS AND ORAL CARE PERFORMED. CLINIMIX AND ABX RUNNING PER ORDER. WILL CONTINUE PLAN OF CARE UNTIL REPORT GIVEN TO PEREZ MEDLEY.
[2021-04-13 12:59] LABS: Hematocrit 24.1 % (37.0-53.0); Hemoglobin 7.9 g/dL (13.5-17.5)
--- NOTE | 2021-04-13 18:35 | NUR ---
0715-Rec'd pt, obtunded/lethargic, sometimes he opens his eyes but mostly yelling, disrobing and pulling off BIPAP tube and telemonitor cables. BP occasionally high when pt is agitated, Precedex drip maintained at 0.7mcg/kg/hr which is 14.5ml/hr. 02 needs keep increasing with current FI02 of 90% and Sp0 of 92%. Lungs are coarse and diminished in the bases. Obtained orders for pain management as pt's daughter verbalized that pt goes to pain clinic for chronic back pain and generalized pain, order was rec'd for Fentanyl patch 50mcg q72hrs or q3days and Roxanol SL 5mg q4hrs prn, orders placed and noted. Pt's daughter reinforced prior to her leaving the bedside that, pt should be intubated upon medical necessity, will endorse pt care to retail shift supervisor RN.
--- NOTE | 2021-04-13 19:51 | NUR ---
1940-Called ICU and spoke with Brijesh, gave her nursing report regarding this pt transferring to ICU-6, made her aware of pt's status.
--- NOTE | 2021-04-13 21:36 | NUR ---
ADMISSION/ ASSUMPTION OF CARE 1929- REPORT RECEIVED FROM DAY SHIFT RN. AWAITING ARRIVAL INTO ICU-6. 2019- PT ADMITTED INTO ICU-6. PT NON VERBAL AT THIS TIME, MOANS AND WITHDRAWS FROM PAIN, DOES NOT FOLLOW COMMANDS. PT ON BIPAP 06/12 WITH FIO2 OF 70%. PT ON PRECEDEX GTT @ 0.7MG/KG/MIN, CLINIMIX @ 75ML/HR, AND 1/2 NS @75ML/HR. PT IS IN SOFT B/L WRIST RESTRAINTS DUE TO AGITATION AND PULLING OFF BIPAP. NO ACUTE DISTRESS NOTED AT THIS TIME. WILL CONTINUE TO MONITOR. SEE SHIFT ASSESSMENT. 2099- DAUGHTER ZUHAIR CALLED BY RN TO NOTIFY OF PT'S TRANSFER TO ICU-6. ALL QUESTIONS ASKED.
[2021-04-14 03:27] LABS: BASOPHILS ABSOLUTE AUTO 0.02 K/mm3 (0.00-0.23); BASOPHILS PERCENT AUTO 0 % (0-2); EOSINOPHILS PERCENT AUTO 0 % (0-6); Hematocrit 26.4 % (37.0-53.0); Hemoglobin 8.7 g/dL (13.5-17.5); IMMATURE GRAN ABSOLUTE AUTO 0.27 K/mm3 (0.00-0.10); IMMATURE GRAN PERCENT AUTO 2 % (0-1); LYMPHOCYTES ABSOLUTE AUTO 0.38 K/mm3 (0.84-5.20); LYMPHOCYTES PERCENT AUTO 3 % (21-46); MONOCYTES ABSOLUTE AUTO 0.53 K/mm3 (0.16-1.47); MONOCYTES PERCENT AUTO 4 % (4-13); Mean Corpuscular HGB 29.7 pg (26.0-34.0); Mean Corpuscular Volume 90 fL (80-100); NEUTROPHILS ABSOLUTE AUTO 13.57 K/mm3 (1.96-9.15); NEUTROPHILS PERCENT AUTO 92 % (41-73); NRBC ABSOLUTE 0.04 K/mm3 (0.00-0.02); NRBC Auto 0.3 /100 WBC (0.0-0.2); Platelet Count 70 K/mm3 (150-400); RDW Coefficient Variation 14.5 % (11.7-14.2); RDW Standard Deviation 48.2 fL (35.1-46.3); Red Blood Cell Count 2.93 M/mm3 (4.30-5.90); White Blood Cell Count 14.77 K/mm3 (4.00-11.30)
[2021-04-14 03:43] LABS: Albumin, Blood 1.2 g/dL (3.4-5.0); Albumin/Globulin Ratio 0.3 (0.8-1.8); Bilirubin, Total 1.2 mg/dL (0.1-1.0); Bun/Creatinine Ratio 48.2 (12.0-20.0); Calcium, Blood 7.9 mg/dL (8.5-10.1); Creatinine, Blood 1.66 mg/dL (0.60-1.20); Globulin, Blood 3.5 g/dL (2.2-4.0); Magnesium, Blood 2.9 mg/dL (1.6-2.4); Phosphorus, Blood 4.8 mg/dL (2.5-4.9); Potassium, Blood 4.8 mmol/L (3.5-5.5); Total Protein, Blood 4.7 g/dL (6.4-8.2)
--- NOTE | 2021-04-14 13:04 | NUR ---
pt down to bipap 50%. rt will trial arvo in a bit. restraints out to trial. still groaning, not really following commands but moving all extremities. prn pain meds and agitation meds given.
--- NOTE | 2021-04-14 18:17 | NUR ---
PT HAS MADE NO CHANGES FROM A NEURO STANDPOINT; STILL JUST GROANING, OCCASIONALLY OPENING EYES UP BARELY. DID SEEM TO RESPOND TO A BIT MORE. PT NOW ON ARVO, BUT ON SIMILAR SETTINGS BIPAP. SEEMS TO BE TOLERATING WELL. BRAN STILL IN PLACE AND DRAINING ADEQUATE YELLOW URINE. TURNED Q2 HOURS. PT'S MOUTH CLEANED OUT Q2 HOURS. STILL ON PRECEDEX AT 0.7. ZOSYN Q4HR. RECIEVED PRN ROXINAL Q4H. ATIVAN PRN ONCE THIS SHIFT. WILL CTM
--- NOTE | 2021-04-14 20:53 | NUR ---
ASSUMPTION OF CARE REPORTR RECEIEVED FROM DAY SHIFT RN. PT RESTING IN BED ON HIGH FLOW NC AT 60L, 60%. PT DOES NOT VERBALIZE, PT ONLY GROANS AND MOANS. PT DOES NOT FOLLOW COMMANDS. NO ACUTE DISTRESS NOTED. SEE SHIFT ASSESSMENT. WILL CONTINUE TO MONITOR.
--- NOTE | 2021-04-14 21:36 | NUR ---
DAUGHTER ZUHAIR CALLED, UPDATE GIVEN BY RN. ALL QUESTIONS ANSWERED.
[2021-04-15 03:23] LABS: BASOPHILS ABSOLUTE AUTO 0.01 K/mm3 (0.00-0.23); BASOPHILS PERCENT AUTO 0 % (0-2); EOSINOPHILS PERCENT AUTO 0 % (0-6); Hematocrit 27.6 % (37.0-53.0); IMMATURE GRAN ABSOLUTE AUTO 0.25 K/mm3 (0.00-0.10); IMMATURE GRAN PERCENT AUTO 2 % (0-1); LYMPHOCYTES PERCENT AUTO 2 % (21-46); MONOCYTES ABSOLUTE AUTO 0.26 K/mm3 (0.16-1.47); MONOCYTES PERCENT AUTO 2 % (4-13); Mean Corpuscular HGB 30.2 pg (26.0-34.0); Mean Corpuscular HGB Conc 32.6 g/dL (31.5-36.5); Mean Corpuscular Volume 93 fL (80-100); NEUTROPHILS ABSOLUTE AUTO 12.48 K/mm3 (1.96-9.15); NEUTROPHILS PERCENT AUTO 94 % (41-73); Platelet Count 82 K/mm3 (150-400); RDW Coefficient Variation 14.6 % (11.7-14.2); RDW Standard Deviation 49.2 fL (35.1-46.3); Red Blood Cell Count 2.98 M/mm3 (4.30-5.90)
[2021-04-15 03:35] LABS: Albumin, Blood 1.3 g/dL (3.4-5.0); Anion Gap 6 mmol/L (6-16); Blood Urea Nitrogen 79 mg/dL (8-24); Bun/Creatinine Ratio 47.3 (12.0-20.0); CO2, Blood 20 mmol/L (21-32); Chloride, Blood 124 mmol/L (98-108); Creatinine, Blood 1.67 mg/dL (0.60-1.20); Glomerular Filtration Rate 40 (60-); Glucose, Blood 327 mg/dL (70-99); Magnesium, Blood 2.7 mg/dL (1.6-2.4); Potassium, Blood 5.1 mmol/L (3.5-5.5); Sodium, Blood 150 mmol/L (136-145)
--- NOTE | 2021-04-15 06:06 | NUR ---
SHIFT SUMMARY PT LETHARGIC, DOES NOT VERBALIZE, FOLLOW COMMANDS, ONLY MOANS OR GROANS WHILE IN PAIN. PT HYPERVENTILATES AND BECOMES TACHYPENIC WHEN IN PAIN OR ANXIOUS. PRN ATIVAN OR ROXANOL GIVEN. PT CURRENTLY ON BIPAP WITH FIO2 OF 50%. PT ON AIRVO DURING DAY AND PUT ON BIPAP AT NIGHT. PT REMAINS ON PRECEDEX GTT, CLINIMIX, AND 1/2 NS. NO ACUTE EVENTS NOTED. NO DISTRESS NOTED. REPORT TO BE GIVEN TO DAY SHIFT RN.
--- NOTE | 2021-04-15 07:52 | NUR ---
ASSUMED PT CARE THIS AM. PT ON BIPAP / 50%, SATS 94% AND GREATER RESP IN 20S. PT DOES NOT OPEN EYES TO VERBAL OR TACTILE STIM. PERRLA, SIZE 2. PT WILL MOAN TO NOX STIM, BUT NO PURPOSEFUL MOVEMENT. TOLERATING BIPAP. LUNGS DIM THROUGHOUT. NO RESTRAINTS. HYPTERTESIVE WITH SYS 140-150, HR ST 100. MD PORTER INFORMED THAT PT NOT ABLE TO TAKE PO MEDS SECONDARY TO MENTAL STATUS. FC INTACT AND PATENT, FC CARE PROVIDED. PRECEDEX AT 0.7MCG/KG/HR. TPN AND 1/2 NS RUNNING ORDERED.
--- NOTE | 2021-04-15 09:05 | NUR ---
PRECEDEX OFF SINCE 819. PT REMAINS LARGELY UNRESPONSIVE EXCEPT GROAN TO NOX STIM, MOVES FINGERS BUT NOT TO COMMANDS, OPENS EYES PARTIALLY. VBG COLLECTED AND SENT. PALLIATIVE CARE CALLED AND NOTIFIED OF PT STATUS, STATES THEY WILL CALL FAMILY DEYANIRA TO DISCUSS GOALS OF CARE.
[2021-04-15 09:16] LABS: PCO2 Venous 32.8 mmHg (38-42); pH Blood Venous 7.38 (7.34-7.37)
--- NOTE | 2021-04-15 09:49 | NUR ---
review of pt with staff. Will continur to monitor and adjust plan of care.
--- NOTE | 2021-04-15 11:16 | NUR ---
PT PLACED ON HHFNC 60/60%, TOLERATING WELL. MD UPDATED EARLIER REGARDING VBG RESULTS, THAT PALLIATIVE CARE WAS CALLED, AND THAT PT NEURO STATUS WITH SOME IMPROVEMENTS, HOWEVER PT UNALBE TO TAKE ORAL MEDICATIONS INCLUDING BETABLOCKERS, PLAVIX, AND NORVASC.
--- NOTE | 2021-04-15 12:40 | NUR ---
SPOKE WITH MD MARTIN RE: PT HTN, UNABLE TO TAKE PO MEDS, BECOMING MORE AWAKE AND AGITATED AEB GROANING, MOVING EXTREMTIES, INTERMITTENTLY PULLING OFF HHFNC. PER MD MARTIN, OKAY TO RESTART PRECEDEX, AVOID ATIVAN IF POSSIBLE, HOLD ALL PO MEDS FOR NOW.
--- NOTE | 2021-04-15 13:39 | NUR ---
MD MARTIN NOTIFIED THAT PT GRIMACING, GROANING, PULLING AT BIPAP MASK, PRECEDEX TITRATED BACK UP TO 0.7 FOR AGITATION, PT GIVEN ROXANOL GTT FOR PAIN. DISCUSSED WITH MD THAT RN HAS CONCERNS SECONDARY TO LESS MOVEMENT NOTED ON RIGHT UPPER EXTREMITY, UNCLEAR IF STROKE SX ARE PRESENT. PT INFORMED THAT PT HAS REQUIRED LABETOLOL IV X2, HYDRALAZINE X1 FOR HTN, AND NO ASA GIVEN. MD IS GOING TO CALL FAMILY AND DISCUSS GOALS OF CARE.
--- NOTE | 2021-04-15 18:40 | NUR ---
SHIFT SUMMARY PT OBTUNDED THIS AM, MIN RESPONSE TO NOX STIM, MD MARTIN UPDATED, PRECEDEX TURNED OFF. WITHIN 30 MIN PT OPENING EYES, MOANS/GROANS, AGITATED, [place] HOWEVER RIGHT VERY WEAK, PULLING OFF BIPAP. PT TREATED WITH ATIVAN X1, AND ROXANOL X1. UPDATED, VERBALIZED OKAY TO RESTART PRECEDEX. ATTEMPTED TO HAVE PT ON AIRVO, HOWEVER REQUIRED FIO2 90% AND CONTINUED TO DESAT, PLACED ON BIPAP /, 50% NOTED THAT PT DESATS WHEN LAYING FLAT (FOR POSITION CHANGES). PT TAKEN FOR CT OF HEAD, NO MAJOR ACUTE CHANGES NOTED. NOTIFIED THIS EVENING THAT PT HYPERGLYCEMIC 427 BG DESPITE EARLIER INTERVENTIONS TO SLIDING SCALE AND LONG ACTING. ADDITIONAL 8 UNITS HUMULIN R GIVEN, PT RECEIVED 10 UNITS HUMALOG. PLAN TO INTUBATE IF NECESSARY, CONSIDERING CECILIO SUE IN AM.
--- NOTE | 2021-04-15 19:19 | NUR ---
PATIENT REPORT RECEIVED FROM DAYSHIFT NURSE PATIENT ON BIPAP 06/12 50%, SEDATED NEURO CARLOS CARDIO NSR NOTED IN THE MONITOR NPO, TPN BRAN IN PLACE, NO BM SKIN REDNESS BILATERAL HEELS, AND SKIN TEARS BILATERAL ARMS IVS, LFA, L PORWERGLIDE WILL TO CONTINUE TO MONITOR.
--- NOTE | 2021-04-16 | NUR ---
HOURLY ROUNDING, PATIENT APPEAR RELAX. WILL TO CONTINUE TO MONITOR
[2021-04-16 04:11] LABS: Hematocrit 25.6 % (37.0-53.0); Hemoglobin 8.1 g/dL (13.5-17.5); Mean Corpuscular HGB Conc 31.6 g/dL (31.5-36.5); Mean Corpuscular Volume 95 fL (80-100); NRBC ABSOLUTE 0.02 K/mm3 (0.00-0.02); NRBC Auto 0.2 /100 WBC (0.0-0.2); Platelet Count 84 K/mm3 (150-400); RDW Coefficient Variation 14.6 % (11.7-14.2); RDW Standard Deviation 50.4 fL (35.1-46.3); White Blood Cell Count 12.61 K/mm3 (4.00-11.30)
[2021-04-16 04:25] LABS: Bun/Creatinine Ratio 49.7 (12.0-20.0); Calcium, Blood 7.9 mg/dL (8.5-10.1); Creatinine, Blood 1.73 mg/dL (0.60-1.20); Potassium, Blood 5.1 mmol/L (3.5-5.5)
--- NOTE | 2021-04-16 09:06 | NUR ---
ASSUMED CARE OF PT. PT ALERT TO VERBAL STIMULATION. PT ABLE TO FOLLOW COMMANDS TO SQUEEZE HANDS, ANSWERS YES TO PAIN AND ASKS FOR WATER. PT REMAINS ON BIPAP 24/06, 40% WITH SATS>95%. GOAL TO REDUCE PRECEDEX (CURRENTLY @ 0.4 MCG/KG/HR), TREAT CHRONIC BACK PAIN PER EMAR, CONTINUE TO MONITOR FOR IMPROVING MENTATION, TRIAL PT ON AIRVO. IF PT ABLE TO TOLERATE AIRVO, OK TO START ORAL NUTRITION PER DR. MARTIN. 07/07 NS RATE DECREASED TO 100 ML/HR. CLINIMIX @ 75 ML/HR. SEE FULL SHIFT ASSESSMENT.
--- NOTE | 2021-04-16 10:15 | NUR ---
PTS DAUGHTER ZUHAIR CALLED, UPDATED WITH PT'S PROGRESS AND PLAN OF CARE.
--- NOTE | 2021-04-16 10:44 | NUR ---
PT MOVING ALL EXTREMETIES WEAKLY, PUTS HAND ON BIPAP MASK BUT DOES NOT ATTEMPT TO PULL OFF. PT MOANS CONSISTENTLY (TREATED FOR PAIN PER MAR) AND SAYS "WATER" REPEATEDLY. BIPAP REMOVED VERY BRIEFLY TO DO ORAL CARE AND SWAB MOUTH, PT'S SATS DROPPED TO 80% IMMEDIATELY. BIPAP MASK REPLACED AND FI02 INCREASED TO 100%, PT RECOVERED QUICKLY AND FIO2 REMAINS AT 40%.
--- NOTE | 2021-04-16 12:27 | NUR ---
PT CONTINUES TO MOAN, MEDICATED PER EMAR AND INCREASED FENTANYL FREQUENCY TO Q2PN. PT PULLING AT BIPAP MASK AND PUTTING FINGERS UNDER MASK CAUSING DESATURATION. PRECEDEX INCREASED TO 0.5 MCG/KG/HR. PT MOVED TO CHAIR USING OVERHEAD LIFT, PT FACING WINDOW AND PTS HOME MUSIC PLAYING ON CD PLAYER.
--- NOTE | 2021-04-16 12:52 | NUR ---
PT PULLING BIPAP MASK OFF, SATS IMMEDIATELY DROP TO LOW 70%, RECOVER QUICKLY ONCE MASK REPLACED. DESPITE BEING REORIENTED PT PULLS AT MASK AND PULLS LEADS OFF. PT PLACED IN BILATERAL SOFT WRIST RESTRAINTS. CARE PLAN UP TO DATE.
--- NOTE | 2021-04-16 15:10 | NUR ---
PTS GRANDDAUGHTER AT BEDSIDE AND FAMILY OUTSIDE OF WINDOW. FAMILY UPDATED WITH PT'S STATUS. PT LESS AGITATED AND NOT PULLING AT BIPAP WHEN FAMILY PRESENT.
--- NOTE | 2021-04-16 17:21 | NUR ---
SHIFT SUMMARY PT REMAINS ON BIPAP WITH SETTINGS 24/06, 40% SATS 92-93%. PT REMAINS UP IN CHAIR WITH FAMILY AT SIDE. PER FAMILY, PT SLEEPS IN RECLINER AT HOME. PT LESS AGITATED WHEN FAMILY AT BEDSIDE AND IS ABLE TO BE REDIRECTED. PT CONTINUES TO REQUEST WATER BUT IS UNABLE TO TOLERATE BIPAP BEING REMOVED, REVIEWED PLAN OF CARE WITH PATIENT AND GRANDDAUGHTER- WILL RESUME ORAL INTAKE WHEN PT ABLE TO TOLERATE SHORT BREAKS FROM BIPAP. ORAL CARE PERFORMED ROUTINELY AND PRN, MOUTH MOISTURIZER APPLIED. PT TREATED FOR CHRONIC PAIN PER EMAR, PT ABLE TO RELAY NEEDS AND ASK FOR "PAIN PILLS" AND REPOSITIONING. PT TREATED TWICE FOR HYPERTENSION, CURRENTLY NORMOTENSIVE. 1150 ROBB URINE OUTPUT WITH SIGNIFICANT SEDIMENT. PRECEDEX @ 0.5 MCG/KG/HR, CLINIMIX @ 75 ML/HR, 1/2 NS @ 100 ML/HR. WILL REPORT TO ONCOMING NURSE.
--- NOTE | 2021-04-16 19:00 | NUR ---
PATIENT REPORT RECEIVED FROM [facility] PATIENT [id number] (PATIENT FOLLOWS COMMANDS) NSR NOTED IN THE MONITOR PATIENT ON BIPAP 06/12 40% IV FLUIDS 0.45 NS 100 ML, PRECEDEX 0.7, TPN 75 ML WILL TO CONTINUE TO MONITOR
--- NOTE | 2021-04-17 08:30 | NUR ---
ASSUMED CARE PT. DROWSY THIS AM, CALLING OUT FOR WATER. PT. ABLE TO STATE HIS NAME AND . UNABLE TO STATE LOCATION AND EVENT. PT. FOLLOWING COMMANDS, REORIENTED. PT. CHANGED FROM BIPAP TO AIRVO AT THIS TIME. CURRENT SETTINGS OF 60L, 50%. PT TOLERATING WELL. ORAL CARE DONE AND MOUTH MOISTURIZER APPLIED. PT. ANSWERING QUESTIONS APPROPRIATELY AT THIS TIME. BILAT WRIST RESTRAINTS REMOVED THIS AM, PRECEDEX GTT PLACED ON STAND BY AT THIS TIME. PT. REMAINS UP IN BEDSIDE CHAIR, REPORTS ITS MORE COMFORTABLE FOR HIM THEN IN THE BED. PT. ABLE TO [place], VERY WEAK ROM COMPLETED. BRAN IN PLACE DRAINING TO GRAVITY. SPEECH EVAL ORDERED FOR TODAY.VSS AT THIS TIME.
[2021-04-17 09:18] LABS: Bun/Creatinine Ratio 54.4 (12.0-20.0); Calcium, Blood 7.9 mg/dL (8.5-10.1); Creatinine, Blood 1.49 mg/dL (0.60-1.20); Potassium, Blood 4.4 mmol/L (3.5-5.5)
--- NOTE | 2021-04-17 10:41 | NUR ---
PT SWITCHED BACK TO BIPAP TO WORK WITH OT. SPO2 DROPPING TO 85 % WHEN PT ACTIVE AND TALKING. BIPAP SETTINGS 06/12, 35%
--- NOTE | 2021-04-17 14:25 | NUR ---
SPEECH THERAPY IN TO SEE PT PT. OKAY TO HAVE SMALL ICE CHIPS AND WILL REEVAL TOMORROW.
--- NOTE | 2021-04-17 17:53 | NUR ---
SHIFT SUMMARY GOOD IMPROVEMENT IN PATIENT TODAY. PT. ALERT AND MORE ORIENTED T/O THE DAY. PT. PRECEDEX REMAINED OFF T/O THIS SHIFT. PT. BETWEEN BIPAP 12/8 ,35% AND AIRVO 60L, 50%. PT RR INCREASED AND PT REPORTS FEELING OF SOB WITH ACTIVITY AND OCCASIONALLY WITH CONVERSATION. CALMED WITH REASSURANCE. PT WAS CLEARED FOR SMALL ICE CHIPS TODAY. PLANS FOR REASSESSMENT TOMORROW, AND POSSIBLE DOBHOFF PLACEMENT IF NOT CLEARED FOR ORAL INTAKE. PT. GAINING MORE STRENGTH IN ARMS, ABLE TO SUCTION SELF AND ASSIST WITH REPOSITIONING. PT. UP IN CHAIR ALL DAY AND BACK TO BED THIS AFTERNOON. COCCYX REMAINS RED BUT NO BREAKDOWN NOTED, NEW PINK SKIN PROTECTOR PLACED TO COCCYX. BRAN CONTINUES TO DRAIN TO GRAVITY. FAMILY IN TO VISIT TODAY AND AT THE WINDOW T/0 THE DAY. VSS AT THIS TIME. SAUL. REPORT TO ONCOMING RN.
--- NOTE | 2021-04-17 19:16 | NUR ---
PATIENT REPORT RECEIVED FROM [facility] PATIENT AAOX4 NSR NOTED IN THE MONITOR BIPAP WILL TO CONTINUE TO MONITOR
--- NOTE | 2021-04-18 08:23 | NUR ---
ASSUMED PT CARE THIS AM. PT A/OX4, CALM, COOPERATIVE, PERRLA SIZE 3 BILATERALLY. PT ABLE TO MOVE ALL EXTERMITIES WITHOUT ISSUE, FACE SYMMETRICAL. LUNGS DIM THROUGHOUT, PT ON HHFNC 60L, 50%, SATS 92% AND ABOVE. PT DENIES PAIN, SOB, NV. CLIMIMAX BEING INFUSED. FC INTACT AND PATENT WITH ROBB URINE. PT REPOSITIONED, CATH CARE PROVIDED. PT ABLE TO HAVE ICE CHIP, TOLERATED WELL. PLAN TO ST THERAPY TO SEE PT TO EVAL FOR DIET VS NEED FOR DOBB LINETTE. PT ASKING IF HE WILL BE TRANSFERED OFF UNIT TODAY, RN INFORMED HIM THAT IS POSSIBLE, BUT WILL BE PENDING WHAT THE MD SAYS TODAY RELATED TO POC. PT VERBALIZES UNDERSTANDING.
[2021-04-18 10:42] LABS: Bun/Creatinine Ratio 58.7 (12.0-20.0); Calcium, Blood 8.2 mg/dL (8.5-10.1); Creatinine, Blood 1.38 mg/dL (0.60-1.20); Potassium, Blood 4.1 mmol/L (3.5-5.5)
--- NOTE | 2021-04-18 11:08 | NUR ---
MD MARTIN IN TO SEE PT, PER MD MARTIN PT TO HAVE CECILIO SUE PLACED FOR ENTERAL FEEDINGS. DISCUSSED THIS WITH PT. PT ADMANTLY REFUSING THIS INTERVENTION AND STATES HE REALLY DOES NOT WANT A FEEDING TUBE PLACED. RISKS/BENEFITS DISCUSSED WITH PT. PT STATES HE WILL TRY AGAIN WITH SPEECH THERAPY TOMORROW, DOES NOT WANT FEEDING TUBE PLACED TODAY. MD MARTIN UPDATED REGARDING THIS, AND THAT NA LEVEL CAME BACK 151.
--- NOTE | 2021-04-18 17:45 | NUR ---
SHIFT SUMMARY PT A/OX4 THROUGHOUT SHIFT. PRECEDEX OFF SINCE NOC SHIFT. SHEFFIELD, NO FOCAL DEFICITS. PT VERY DECONDITIONED, BUT MAKING PROGRESS. SEEN BY PT AND OT TODAY, BOTH REPORT IMPROVEMENTS IN PT STATUS. ST CAO, PT STILL UNABLE TO SAFELY UPGRADE DIET BEYOND ICE CHIPS. DISCUSSED NGT PLACEMENT WITH PT, PT DECLINES NGT WHEN RN GOES IN, STATES HE WILL ALLOW IT TOMORROW IF NEED BE, BUT WANTS TO TRY SPEECH AGAIN TOMORROW. UPDATED AND AWARE. PT UP TO CHAIR FOR MORE THAN 6 HOURS, TOLERATED WELL. DENIES PAIN, SOB, NV. IV ANTIHYPERTENSIVES GIVEN X 2 FOR SBP GREATER THAN 170. PT PLACED BACK ON BIPAP AT CHANGE OF SHIFT SECONDARY TO INCREASED WOB. FAMILY VISITED AT WINDOW, DTR PRESENT DURING VISITING HOURS. PT PCU STATUS. FAMILY AND PT UPDATED ON PT STATUS AND POC.
--- NOTE | 2021-04-18 19:30 | NUR ---
PATIENT REPORT RECEIVED FROM [facility] PATIENT AAOX4 NSR NOTED IN THE MONIOTR BIPAP 06/12/40% WILL TO CONTINUE TO MONITOR
[2021-04-19 09:52] LABS: Bun/Creatinine Ratio 56.2 (12.0-20.0); Calcium, Blood 7.9 mg/dL (8.5-10.1); Creatinine, Blood 1.28 mg/dL (0.60-1.20)
--- NOTE | 2021-04-19 10:26 | NUR ---
ASSUMED PT CARE THIS AM. PT REMAINS A/OX4, FATIGUED, COOPERATIVE. PT PLACED ON HHFNC, 60L 70%. HHFNC INCREASED TO 90% OVER 15 MIN PT DESATS TO 85. PT DENIES INCREASED SOB, HOWEVER WOB MORE EVIDENT THIS MORNING. MD MARTIN IN TO SEE PT, ORDER FOR DBHT AND CXR. DOKEITH LINETTE PLACED, PT PREMEDICATED WITH ANALGESIA, TOLERATING WELL. PTHERAPY HAS WORKED WITH PT THIS AM. PT HAS NEEDED ANTIHYPERTENSIVE X 2 THIS AM.
--- NOTE | 2021-04-19 18:02 | NUR ---
SHIFT SUMMARY PT REMAINS A/OX4, COOPERATIVE, AND WITH NOTABLE FATIGUE. ATTEMPTED HHFNC THIS AM, BUT PLACED ON BIPAP FOR MAJORITY OF THE DAY SECONDARY TO INCREASED WOB. BIPAP SETTINGS AT END OF SHIFT 06/12 50%, PT REPORTS FEELING BETTER WITH BIPAP. DOBB LINETTE PLACED TO RIGHT NARE, 75CM, CONFIRMED WITH CXR. CLINIMEX DC, TUBE FEED STARTED AT 25ML/HR AT 1330. DUE TO INCREASE AT 1930 TO 35ML/HR. PT GIVEN PO MEDS AFTER DBHT PLACED, NEEDED PRN IV ANTIHYPERTENSIVE X 3 TODAY. FC WITH 800ML LIGHT ROBB UO. PT REPOSITIONED APPROX Q 2 HRS. FAMILY IN TO SEE PT VIA WINDOW, AND 1 VISITOR AT BEDSIDE. RN AND MD HAVE UPDATED PT AND FAMILY.
--- NOTE | 2021-04-19 19:23 | NUR ---
PATIENT REPORT RECEIVED FROM [facility] AAOX4, APPEAR ON CALM BIPAB 06/12 40% NSR NOTED IN THE MONITOR WILL TO CONTINUE TO MONITOR
--- NOTE | 2021-04-20 07:24 | NUR ---
ASSUMED CARE: PT RESTING IN BED WITH AIRVO IN PLACE AT 60L AND 90% FIO2. PT APPEARS COMFORTABLE AT THIS TIME BUT RESPIRATIONS ARE SHALLOW AND AT [address] TF IN PL[address], WILL INCREASE VOLUME PER ORDERS. BRAN IN PLACE DRAINING YELLOW URINE. SCATTERED BRUISING NOTED TO ARMS AND ABDOMEN. PT MUMBLING INCOHERENTLY AT TIMES.
[2021-04-20 09:55] LABS: Calcium, Blood 7.6 mg/dL (8.5-10.1); Creatinine, Blood 1.29 mg/dL (0.60-1.20); Magnesium, Blood 2.8 mg/dL (1.6-2.4); Phosphorus, Blood 3.9 mg/dL (2.5-4.9); Potassium, Blood 3.6 mmol/L (3.5-5.5)
--- NOTE | 2021-04-20 17:08 | NUR ---
PT'S SON WAS AT BEDSIDE AND BED WAS POINTED TOWARD WINDOW SO THAT PT COULD SEE HIS . RN CAME INTO ROOM AND NOTED THAT PT'S RESPIRATIONS WERE AVERAGING MID 30S TO 40S. BIPAP MASK REPLACED WITH SETTINGS 12/8 AND 60% FIO2. PT AWAKE AND TALKING BUT APPEARED TIRED AT THIS TIME.
--- NOTE | 2021-04-20 18:22 | NUR ---
SHIFT SUMMARY: PT CURRENTLY ON BIPAP AT 06/12 WITH 60% FIO2, SWITCHED FROM AIRVO AFTER BEING ON IT FOR MAJORITY OF DAY. FAMILY CAME TO VISIT PT THIS AFTERNOON. DOBHOFF IN PLACE WITH TF AT GOAL. BRAN PUTTING OUT CONCENTRATED URINE. PT REMAINS CONFUSED AT TIMES AND SLEEPY THIS SHIFT. NO ACUTE NEEDS AT THIS TIME.
--- NOTE | 2021-04-20 19:00 | NUR ---
PATIENT REPORT RECEIVED FROM [facility] AAOX4 NSR NOTED IN THE MONITOR BIPAP WILL TO CONTINUE TO MONITOR
--- NOTE | 2021-04-20 19:39 | NUR ---
PATIENT REPORT RECEIVED FROM [facility] PATIENT AAOX4 NSR NOTED IN THE MONITOR NASAL C 3 L WILL TO CONTINUE TO MONITOR
--- NOTE | 2021-04-20 19:41 | NUR ---
PATIENT REPOR RECEIVED FROM [facility] PATIENT AAOX4 NSR NOTED IN THE MONITOR BIPAP 06/12/40% WILL TO CONTINUE TO MONITOR
[2021-04-21 06:39] LABS: Bun/Creatinine Ratio 57.4 (12.0-20.0); Calcium, Blood 7.6 mg/dL (8.5-10.1); Creatinine, Blood 1.41 mg/dL (0.60-1.20); Phosphorus, Blood 3.7 mg/dL (2.5-4.9); Potassium, Blood 3.7 mmol/L (3.5-5.5)
[2021-04-21 08:48] LABS: Hematocrit 23.4 % (37.0-53.0); Hemoglobin 7.4 g/dL (13.5-17.5); Mean Corpuscular HGB 30.1 pg (26.0-34.0); Mean Corpuscular HGB Conc 31.6 g/dL (31.5-36.5); Mean Corpuscular Volume 95 fL (80-100); Platelet Count 98 K/mm3 (150-400); RDW Coefficient Variation 15.7 % (11.7-14.2); RDW Standard Deviation 53.5 fL (35.1-46.3); Red Blood Cell Count 2.46 M/mm3 (4.30-5.90); White Blood Cell Count 17.98 K/mm3 (4.00-11.30)
--- NOTE | 2021-04-21 08:55 | NUR ---
ASSUMED PT CARE. PT AWAKENS TO VERBAL STIM, ABLE TO ANSWER ORIENTATION QUESTIONS CORRECTLY, FOLLOWING COMMANDS. PT VERY WEAK AND DECONDITIONED. RESTRAINTS TAKEN OFF WITH VERBAL AGREEMENT MADE WITH PT, PT NODS UNDERSTANDING. BIPAP 06/12 50%. ORAL CARE PROVIDED. DOBB LINETTE TUBE IN PLACE, TF AT GOAL. DISCUSSED WITH MD MARTIN PT MAY BENEFIT FROM INCREASED FREE WATER FLUSHES AND DC IVF SECONDARY TO HYPERNATREMIA AND HYPERCHOLERMIA. NEW ORDERS OBTAINED. PT REPOSITIONED, FC CARE PROVIDED. LABS DRAWN.
--- NOTE | 2021-04-21 17:52 | NUR ---
SHIFT SUMMARY PT A/OX4, FOLLOWING COMMANDS, [place]ELD, NO NEED FOR RESTRAINT OR SEDATION ON THIS SHIFT. PT COOPERATIVE, CALM. PT ON BIPAP 12/8 60%, PLACED ON AIRVO 60L 70% FOR MAJORITY OF SHIFT, PT TOLERATED WELL AND MAINTAINED SATS ABOVE 91%. ATTEMPTED TO TITRATE DOWN FI02, BUT SATS DROPPED TO 88 AND BELOW. NEW DOBB LINETTE PLACED SECONDARY TO CLOG IN PREVIOUS DOBB LINETTE WHICH STAFF WAS UNABLE TO TROUBLESHOOT. CXR CONFIRMATION, MD MARTIN INFORMED, GIVEN OKAY TO USE ORDER AFTER PULLING BACK 2 CM AND REPEAT CXR. IVF DC, FREE WATER FLUSHES INCREASED TO 200ML Q 4HRS. FAMILY IN TO VISIT THIS AFTERNOON, AT BEDSIDE. PT GIVEN FENT X 2 FOR C/O PAIN. PRECEDEX AVAILABLE IF NEEDED FOR ANXIETY/RESTLESSNESS.
--- NOTE | 2021-04-21 22:03 | NUR ---
ASSUMED CARE AT 1900 PT LAYING IN BED WATCHING TV AT CHANGE OF SHIFT. PT IS ALERT/ORIENTED X4, IS SLOW TO RESPOND AND CANNOT SPEAK A FULL SENTENCE WITHOUT TAKING A BREATH OR TWO DURING; OCCATIONALLY ASKS THE SAME QUESTIONS; OCCATIONALLY USES CALL LIGHT; SLEEPS WHEN NOT STIMULATED. SPO2 >90% ON BIPAP SETTINGS /, FIO2 70%. AFEBRILE. HR 70-80'S. SBP 150'S. NEPRO INFUSING VIA DOBHOFF AT GOAL. BRAN IN PLACE AND DRAINING TO GRAVITY. SEE SHIFT ASSESSMENT FOR FULL ASSESSMENT.
[2021-04-22 04:36] LABS: Hematocrit 23.2 % (37.0-53.0); Hemoglobin 7.3 g/dL (13.5-17.5); Mean Corpuscular HGB 30.2 pg (26.0-34.0); Mean Corpuscular HGB Conc 31.5 g/dL (31.5-36.5); Mean Corpuscular Volume 96 fL (80-100); Platelet Count 107 K/mm3 (150-400); RDW Coefficient Variation 15.9 % (11.7-14.2); RDW Standard Deviation 53.7 fL (35.1-46.3); Red Blood Cell Count 2.42 M/mm3 (4.30-5.90); White Blood Cell Count 16.33 K/mm3 (4.00-11.30)
[2021-04-22 04:50] LABS: Bun/Creatinine Ratio 54.5 (12.0-20.0); Calcium, Blood 8.1 mg/dL (8.5-10.1); Creatinine, Blood 1.45 mg/dL (0.60-1.20); Magnesium, Blood 2.8 mg/dL (1.6-2.4); Phosphorus, Blood 3.3 mg/dL (2.5-4.9)
--- NOTE | 2021-04-22 06:16 | NUR ---
END OF SHIFT SUMMARY NO ACUTE EVENTS OVERNIGHT. PT ONLY SLEPT IN 2HR INCREMENTS AND THAN WOULD WAKE UP EITHER IN PAIN, OR SLIGHTLY DISORIENTED AND WANTING TO KNOW THE TIME. AFTER REORIENTING PT, HE WOULD BE ALERT/ORIENTED X4 BUT OCCATIONALLY ASK THE SAME QUESTION FREQUENTLY. PRN FENTANYL GIVEN X4 FOR PAIN IN HIPS R/T ARTHRITIS ACCORDING TO PT. AFEBRILE. SPO2 >92% ON BIPAP WITH SETTINGS 12/8, FIO2 60%, WAS ABLE TO DECREASE FROM 70%. HR 70-80'S. SBP 150-160'S. NEPRO INFUSING VIA DOBHOFF AT 40ML/HR (GOAL) WITH 200ML WATER FLUSHES Q4HR. BRAN IN PLACE AND DRAINING DARK, ROBB URINE WITH SEDIMENT. LT FOREARM WEEPING DECREASED, RT FOREARM CONT TO WEEP. WILL REPORT TO AM RN WHEN AVAILABLE.
--- NOTE | 2021-04-22 08:51 | NUR ---
ASSUMED PT CARE THIS AM. PT ON BIPAP 06/12 60%. PT A/OX4, FOLLOWING COMMANDS, SHEFFIELD. PT DECONDITIONED AND WEAK, BUT IS MOTIVATED TO GET UP TO CHAIR. PT PLACED ON AIRVO 60L 70%, TOLERATING WELL. DISCUSSED WITH MD MARTIN THAT H/H DECREASED, NO VISIBLE SIGNS OF BLEEDING; ALSO DISCUSSED INCREASED PAIN REQUIREMENTS AND THAT PT WOULD BENEFIT FROM LONG ACTING ANALGESIA. DOBB LINETTE IN PLACE, RUNNING AT GOAL. FC INTACT AND PATENT. PLAN TO BATHE PT THIS AM AND THEN SLING TO CHAIR. ST WILL SEE PT LATER THIS MORNING.
--- NOTE | 2021-04-22 11:29 | NUR ---
RN ENTERED PT ROOM AND NOTICED PT HAD DOBB LINETTE TUBE SLIGHTLY PULLED OUT ON ACCIDENT HE WAS TRYING TO MOVE HIMSELF IN CHAIR. TF STOPPED IMMEDIATELY, DBHT ASSESSED AND REMOVED IT WAS AT 55 CM. PT DESAT TO 85%, RN HAD PT COUGH AND DEEP BREATHE, PT WITH STRONG COUGH. RIGHT LUNG SOUNDS COARSE. NT SUCTION X 3, SMALL AMOUNT OF BEIGE OUTPUT. SATS BACK TO 94%, PT ABLE TO COUGH WHEN NEEDED AND CLEAR. MD MARTIN UPDATED, ORDER FOR NT SUCTION PRN. DBHT LEFT OUT UNTIL SPEECH EVAL.
--- NOTE | 2021-04-22 18:17 | NUR ---
SHIFT SUMMARY PT A/WALT, YOHANNES, FOLLOWING COMMANDS. WORKED WITH PT/OT TODAY. UP TO CHAIR FOR 3 HRS VIA SLING. PT ON AIRVO 60L 70% FOR MAJORITY OF SHIFT, PLACED BACK ON BIPAP 12/8 70% AT END OF SHIFT. ST TAVAREZ-KI[facility], PT OKAY TO HAVE THIN OR NECTAR LIQ VIA SPOON, CECILIO SUE REPLACED AND VERIFIED OKAY TO USE. FREE WATER FLUSHES INCREASED TO 400 ML Q 4 PER MD MARTIN ORDER. PT STARTED ON PERCOCET PRN FOR PAIN MANAGEMENT. ORDERS TO TRANSFER PT TO PCU. FAMILY UPDATED.
--- NOTE | 2021-04-22 19:16 | NUR ---
PATIENT REPORT RECEIVED [facility] DAYSHIFT PATIENT AAOX4 BIPAP 60/70 % NSR NOTE IN THE MONITOR AFEBRILE SKIN INTACT WILL TO CONTINUE TO MONITOR
--- NOTE | 2021-04-23 04:12 | NUR ---
PORPOUSE HOURLY ROUND. PATIENT APPEAR ON CALM AND IN STABLE CONDITIONS. NSR NOTED IN THE MONITOR, BP 141/64 ,MAP 96. WILL TO CONTINUE TO MONITOR.
--- NOTE | 2021-04-23 06:40 | NUR ---
PATIENT APPEAR ON CALM, AAOX4, NSR NOTED IN THE MONITOR, PATIENT ON BIPAP, BM = 0, FOLLEY 900 ML ALLIE TO CONTINUE TO MONITOR
[2021-04-23 11:23] LABS: Bun/Creatinine Ratio 49.6 (12.0-20.0); Calcium, Blood 7.8 mg/dL (8.5-10.1); Creatinine, Blood 1.33 mg/dL (0.60-1.20); Potassium, Blood 3.7 mmol/L (3.5-5.5)
--- NOTE | 2021-04-23 18:14 | NUR ---
CARE ASSUMPTION/ARRIVAL/SHIFT SUMMARY PATIENT ARRIVED FROM IC VIA ICU BED AND TRANSFERD TO PCU BED BY SLIDER SHEET. PATIENT ARRIVED AT 1740. VSS. SPO2 >90% ON AIRVO 60L 83%. TELE SR 83. LUNG COUNDS COARSE. STRONG PULSE RADIAL, WEAK PEDIS. +2 EDEMA LOWER EXTERMITIES BILATERALLY. PATIENT USES BIPAP AT NIGHT. PATEINT IS A FEEDER 1:1. PATIENT CAN SUCTION INDEPDENTLY. TF RUNNING AT GOAL RATE. BRAN DRAINING WITH GRAVITY, DARK YELLOW. PATIENT ORIENTATED TO ROOM AND CALL LIGHT. CALL LIGHT WITHIN REACH. WILL CONTINUE TO MONITOR AND PROVIDE CARE UNTIL HAND OFF WITH NEXT SHIFT.
--- NOTE | 2021-04-23 18:18 | NUR ---
AOx4, denies N/V this shift, denied needing pain medication this shift, repeated requests, need reorientation/frequent directions, NSR on monitor 70s no ectopy noted, +2/+1 radial/dorsal pulses respectively, edema still present BLE and upper arms some weeping ULE, Bipap 60% vs HHFNC 60L/90%, Pt mouth breather needs redirection to breath through nose when on HHFNC, coarse lungs throughout, denies SOB despite some accesory muscle use, Pt uninentional NG pulled, new dobhoff placed and xray confirmed okay to use per MD, TF continued goal 40ml/hr, bowel sounds present, difficulty assessing LBM not in chart since admit, bowel regimine scheduled senna/colace/miralax given, vernon continues concentrated yellow UOP adequate for goal >40ml/hr, visited in room and daughter updated on care, q2 turns completed per policy.
--- NOTE | 2021-04-24 07:00 | NUR ---
SHIFT SUMMARY PT A/OX4 AND CAN BE FORGETFUL/ANXIOUS. ON BIPAP WITH FIO2 AT 85% TO MAINTAIN O2 ABOVE 93%. ON TELE NSR IN THE 80'S. ON FEEDING TUBE AT GOAL RATE 40ML/HR. BRAN CATH IN PLACE WITH ROBB COLOR SEDEMANT AND URINE YELLLOW IN COLOR. X2 MAX ASSIST IN BED; REPOSITINED Q2H, WITH FREQUENT CHECKS. PT RECEIVED A PARTIAL BED BATH; PT UPSET SINCE DIDN'T WANT ONE AT NIGHT BUT NEEDED ONE. AT BEGINNING OF SHIFT HAD LEFT UPPER POWERGLID PULLED OUT INSIDE GOWN. MULTIPLE ATTEMPS BY PCU NURSES AND ICU NURSES FOR POWERGLID T/O THE NIGTH. I.V. WAS PUT IN PLACE BY BRAKE SHOE REBUILDER ON LLE. PT GOT UPSET AND MENTIONED THIS WAS A HORRIBLE NIGHT. TRIED TO MAKE PT COMFORTABLE WITH WARM BLANKETS, REPOSITIONING AND KEEPING HIP PAIN UNDER CONTROL. PT DID STATE HE WAS MORE COMFORTABLE. EDUCATED PT ON MULTIPLE I.V. ATTEMPTS AND IMPORTANCE OF AN I.V. LINE AND PARTIAL BEDBATH. BUE AND BLE EDEMA NOTED WITH SEEPING. BED IN LOWEST POSITION, CALL LIGHT W/I REACH, BED ALARM ON. REPORT GIVEN TO DAY SHIFT RN.
[2021-04-24 09:35] LABS: Bun/Creatinine Ratio 53.8 (12.0-20.0); Creatinine, Blood 1.17 mg/dL (0.60-1.20); Potassium, Blood 4.3 mmol/L (3.5-5.5)
--- NOTE | 2021-04-24 14:34 | NUR ---
UPDATE Realeyes INFORMED THIS RN THAT PT HAD A 10 BEAT SERIES OF V-TACH. DR MARTIN CONTACTED AND INFORMED
--- NOTE | 2021-04-24 18:18 | NUR ---
SHIFT SUMMARY PT A/O X4. VSS T/O SHIFT WITH O2 SATS >91% ON 60L HFNC FOR MOST OF THE SHIFT. PT ON CONTINUOUS TF WITH FLUSH OF 200ML Q4 HRS, TF WAS PUT ON STANDBY DURING DINNER DUE TO PT EATING A GOOD PORTION OF DINNER. PT TOLERATED DIET WELL, NO C/O NAUSEA. PT ATTEMPTED BM ON BEDPAN, NO RESULTS, DR MARTIN ORDERED STOOL SOFTENERS. NO REPORT OF CHEST PAIN/PRESSURE T/O SHIFT. PT REPORTS PAIN IN BACK/HIPS, TREATED PER EMAR. PT HAS BRAN IN PLACE DRAINING TO GRAVITY, DARK YELLOW/RBOB URINE WITH SEDIMENT, COLLECTION BAG CHANGED. PT HAS WOUND ON RIGHT FOREARM, PHOTOGRAPHED AND WRAPPED WITH NON-ADHESSIVE BANDAGES. PT HAD A 10 BEAT SERRIES OF V-TACH, NOTIFIED.
--- NOTE | 2021-04-25 06:55 | NUR ---
PT MAINTAIN O2 SAT ABOVE 90% ON BIPAP WITH 75% FIO2, REQUIRING INCREASE TO 85% WITH RESPOSITIONING. EASILY WEANED BACK TO 75%. PT HAD SEVERAL BMS TODAY, RONAL SEGOVIA.
--- NOTE | 2021-04-25 17:13 | NUR ---
SHIFT SUMMARY PT A/O X4, GENERALIZED WEAKNESS AND MORE TIRED TODAY. VSS T/O SHIFT WITH O2 SATS >93% ON CURRENT AIRVO SETTINGS OF 60L FIO2 70%. PT ABLE TO EAT BREAKFAST, AND WAS MORE ENERGETIC IN THE MORNIG OF THE SHIFT. PT AGREED TO GETTING INTO A RECLINER VIA LIFT TODAY. PT AROUND LUNCH TIME WAS DIFFICULT TO KEEP AWAKE. PT REFUSED MULTIPLE TIMES TO BE TRANFERED TO RECLINER BECAUSE PT WANTED TO REST. AROUND 1400, PT AGREED TO TRANSFER TO RECLINER. PT TOLERATED THE TRANSFER WELL MAINTAINING O2 SATS >THAN 92%. PT REPORTED CHRONIC HIP PAIN TREATED PER EMAR. PT HAS BRAN DRAINING TO GRAVITY WITH ROBB URINE WITH SEDIMENT. PT SEEN BY PHYSICAL THERAPY, PT TOO TIRED TO PARTICIPATE.
[2021-04-26 05:05] LABS: Bun/Creatinine Ratio 50.4 (12.0-20.0); Creatinine, Blood 1.29 mg/dL (0.60-1.20); Potassium, Blood 3.7 mmol/L (3.5-5.5)
--- NOTE | 2021-04-26 06:30 | NUR ---
Pt in restraints 04/25/21. Verbal order recieved 04/25/21 at 0800 but was not placed in order sets.
--- NOTE | 2021-04-26 16:56 | NUR ---
Spoke with Dr Chahal earlier today and discussed case. Pt resting in recliner chair upon arrival. Pt C/O pain and Primary RN Winsome in to offer pain medication. Pt's son Elliot in visiting with Pt. Provided update and offered theapeutic listening. Reviewed plan of care and listened to concerns regarding times Pt receives therapy sessions. Son Elliot inquires if therapy can work with Pt earlier in the day so Pt does not miss out on family visiting during visiting hours. Instructed request will be discussed with therapy. Provided update on discussion that took place with physical therapy. Etienne Zarate expresses appreciation and reports no other concerns at this time. Called and spoke with Pt's daughterr Gena and provided update. Offered therapeutic listening, answered questions, and discussed concerns. Gena discusses how Pt was able to make progress in ICU and family being at the window outside of his ICU room may have contributed. She inquires about allowing family in a little earlier to help motivate Pt. Discussed this with PCU size worker Gabe. Tejas is willing to trial tomorrow and allow family in a little earlier. Listened as Gena V/U of Pt's prognosis but family would like to support Pt's wishes. Continue therapeutic listening. Gena expresses appreciation and reports no other concerns at this time. Palliative Care will remain available.
[2021-04-26 19:02] LABS: Bun/Creatinine Ratio 54.3 (12.0-20.0); Calcium, Blood 8.1 mg/dL (8.5-10.1); Creatinine, Blood 1.29 mg/dL (0.60-1.20); Potassium, Blood 4.2 mmol/L (3.5-5.5)
[2021-04-27 04:26] LABS: Bun/Creatinine Ratio 51.1 (12.0-20.0); Calcium, Blood 7.9 mg/dL (8.5-10.1); Creatinine, Blood 1.33 mg/dL (0.60-1.20); Potassium, Blood 3.8 mmol/L (3.5-5.5)
--- NOTE | 2021-04-27 06:42 | NUR ---
SHIFT SUMMARY PATIENT IS RESTING IN BED COMFORTABLY. BED IS IN LOW POSITION. CALL LIGHT IS IN REACH BUT PATIENT DOES NOT USE IT HE NORMALLY CALL OUT "HELP" TO GET SOMEONE IN HIS ROOM. PATIENT HAD SOME INTERMITTENT CONFUSION. PATIENT COMPLAINED OF PAIN AND WAS MEDICATED NEEDED. BRAN IS PATENT AND DRAINING. AT START OF SHIFT THE PATIENT WAS ON BIPAP 12/8 80% FIO2 SATURATING ABOVE 95%. HE WAS SWITCHED TO AIRVO FOR HIS EVENING MEDICATION AND WAS SATURATING ABOVE 92% ON 60L 90% FIO2 ON THE AIRVO. WAS GIVEN A SUPPOSITORY BUT DID NOT HAVE A BOWEL MOVEMENT. NSR ON THE MONITOR. WILL CONTINUE TO MONITOR. REPORT WILL BE GIVEN TO DAY SHIFT RN.
--- NOTE | 2021-04-27 17:40 | NUR ---
DURING BS ASSESSMENT AND SWITCHING FROM BIPAP TO HFNC FOR PM MEAL, PATIENT NOTED TO POOR QUALITY OF RESPIRATIONS -LONG PERIODS OF APNEA WITH DECREASING HEART RATE, UNAROUSABLE -WHILE O2 SATS IN THE 80'S RETURNED BIPAP, RT PRESENT -PATIENT CONDITION DECLINING AFTER STERNUM STIM AND MANXIMUM BIPAP SETTINGS. CODE BLUE ACTIVATED, RETURNED TO BED FOR MANAGEMENT.
--- NOTE | 2021-04-27 18:00 | NUR ---
TRANSFER TO ICU PATIENT TRANSFERRED TO ICU AT 1710. 1712: SBP IN THE 60S, HR 40S, WEAK PULSE. 1 MG EPINEPHRINE GIVEN. NURSE ON PHONE WITH DR. VENCES. 1715: DR. VENCES, DR. MARTIN IN ROOM. 1 MG EPINEPHRINE. MILO DELGADO WITH PALLIATIVE CARE OUTSIDE ROOM WITH PATIENT'S . 1718: 1 AMP BICARB GIVEN. 1719: DOPAMINE STARTED AT 5 MCG/ KG/ MINUTE. 1726: 1 MG EPINEPHRINE GIVEN. 1734: 1 L NC BOLUS STARTED. 1736: DR. VENCES AT BEDSIDE TO PLACE CENTRAL LINE. 1737: LEVOPHED STARTED AT 30 MCG/ MINUTE.
--- NOTE | 2021-04-27 18:16 | NUR ---
brenden bautista called for patient. moved to icu, family on their way in at bedside. She is understanding of prognosis. kps score is 10%
[2021-04-27 18:18] LABS: BASOPHILS ABSOLUTE AUTO 0.02 K/mm3 (0.00-0.23); BASOPHILS PERCENT AUTO 0 % (0-2); EOSINOPHILS ABSOLUTE AUTO 0.02 K/mm3 (0.00-0.68); EOSINOPHILS PERCENT AUTO 0 % (0-6); Hematocrit 20.8 % (37.0-53.0); IMMATURE GRAN ABSOLUTE AUTO 0.37 K/mm3 (0.00-0.10); IMMATURE GRAN PERCENT AUTO 3 % (0-1); LYMPHOCYTES ABSOLUTE AUTO 0.96 K/mm3 (0.84-5.20); LYMPHOCYTES PERCENT AUTO 7 % (21-46); MONOCYTES ABSOLUTE AUTO 0.14 K/mm3 (0.16-1.47); MONOCYTES PERCENT AUTO 1 % (4-13); Mean Corpuscular HGB 30.4 pg (26.0-34.0); Mean Corpuscular HGB Conc 28.4 g/dL (31.5-36.5); Mean Corpuscular Volume 107 fL (80-100); NEUTROPHILS ABSOLUTE AUTO 13.03 K/mm3 (1.96-9.15); NEUTROPHILS PERCENT AUTO 90 % (41-73); NRBC ABSOLUTE 0.12 K/mm3 (0.00-0.02); NRBC Auto 0.8 /100 WBC (0.0-0.2); Platelet Count 135 K/mm3 (150-400); RDW Standard Deviation 67.5 fL (35.1-46.3); Red Blood Cell Count 1.94 M/mm3 (4.30-5.90); White Blood Cell Count 14.54 K/mm3 (4.00-11.30)
[2021-04-27 18:24] LABS: Hemoglobin 5.9 g/dL (13.5-17.5)
--- NOTE | 2021-04-27 18:40 | NUR ---
TIME OF AFTER MULTIPLE ROUNDS OF CPR, PT SPOUSE DECIDED TO NOT CONTINUE WITH CPR IF PULSE IS LOST AGAIN AND DISCONTINUE LIFE SUPPORT. PT HR SLOWING AGAIN AT 1835 TO PEA. ALL PRESSORS DISCONTINUED. NO HEART TONES AUSCULTATED. TIME OF 183. PALLIATIVE CARE RN MILO AT BEDSIDE TO PROVIDE SUPPORT AT THIS TIME. DR VENCES NOTIFIED.
[2021-04-27 18:51] LABS: Albumin, Blood 1.1 g/dL (3.4-5.0); Albumin/Globulin Ratio 0.3 (0.8-1.8); Bilirubin, Total 0.5 mg/dL (0.1-1.0); Bun/Creatinine Ratio 51.9 (12.0-20.0); Calcium, Blood 7.6 mg/dL (8.5-10.1); Creatinine, Blood 1.33 mg/dL (0.60-1.20); Globulin, Blood 3.4 g/dL (2.2-4.0); Potassium, Blood 4.8 mmol/L (3.5-5.5); Total Protein, Blood 4.5 g/dL (6.4-8.2)
--- NOTE | 2021-04-27 18:54 | NUR ---
pt in cardiac arrest again. cpr in progress family decide to stop. at bedside
== END 2021-04-27 18:38 | DRG 208 ==
LOC: ER 10:54 → PCU 13:17 → ICUE 13:17 → PCU 16:32 → ICUE 04-13 20:13 → PCU 04-23 17:40 → ICUE 04-27 17:10
PROVIDERS: Family Medicine; Hospitalist; Internal Medicine; Nurse Practitioner Acute Care; Student in an Organized Health Care Education/Training Program; ADMIT Internal Medicine
PROC: 5A09557 Assistance with Respiratory Ventilation, Greater than 96 Consecutive Hours, Continuous Positive Airway Pressure (ICD-10-PCS; 2021-04-05)
PROC: 8E0ZXY6 Isolation (ICD-10-PCS; 2021-04-05)
PROC: 3E0333Z Introduction of Anti-inflammatory into Peripheral Vein, Percutaneous Approach (ICD-10-PCS; 2021-04-05)
PROC: XW033E5 Introduction of Remdesivir Anti-infective into Peripheral Vein, Percutaneous Approach, New Technology Group 5 (ICD-10-PCS; 2021-04-05)
PROC: 5A0945A Assistance with Respiratory Ventilation, 24-96 Consecutive Hours, High Flow/Velocity Cannula (ICD-10-PCS; 2021-04-10)
PROC: 0BH17EZ Insertion of Endotracheal Airway into Trachea, Via Natural or Artificial Opening (ICD-10-PCS; principal; 2021-04-27)
PROC: 5A1935Z Respiratory Ventilation, Less than 24 Consecutive Hours (ICD-10-PCS; 2021-04-27)
PROC: 5A12012 Performance of Cardiac Output, Single, Manual (ICD-10-PCS; 2021-04-27)
PROC: 06HY33Z Insertion of Infusion Device into Lower Vein, Percutaneous Approach (ICD-10-PCS; 2021-04-27)
PROC: 3E043XZ Introduction of Vasopressor into Central Vein, Percutaneous Approach (ICD-10-PCS; 2021-04-27)
DX: U07.1 COVID-19 (principal); J12.82 Pneumonia due to coronavirus disease 2019; G92.9 Unspecified toxic encephalopathy; Z51.5 Encounter for palliative care; G93.41 Metabolic encephalopathy; J80 Acute respiratory distress syndrome; N17.9 Acute kidney failure, unspecified; F11.20 Opioid dependence, uncomplicated; I24.8 Other forms of acute ischemic heart disease; E87.0 Hyperosmolality and hypernatremia; R57.9 Shock, unspecified; I46.9 Cardiac arrest, cause unspecified; I25.10 Atherosclerotic heart disease of native coronary artery without angina pectoris; I10 Essential (primary) hypertension; E66.01 Morbid (severe) obesity due to excess calories; Z68.32 Body mass index [BMI] 32.0-32.9, adult; Z78.1 Physical restraint status; E11.51 Type 2 diabetes mellitus with diabetic peripheral angiopathy without gangrene; E87.6 Hypokalemia; E78.5 Hyperlipidemia, unspecified; K21.9 Gastro-esophageal reflux disease without esophagitis; E11.65 Type 2 diabetes mellitus with hyperglycemia; T38.0X5A Adverse effect of glucocorticoids and synthetic analogues, initial encounter; D64.9 Anemia, unspecified; D69.6 Thrombocytopenia, unspecified; D72.829 Elevated white blood cell count, unspecified; R91.8 Other nonspecific abnormal finding of lung field; I73.9 Peripheral vascular disease, unspecified; M19.90 Unspecified osteoarthritis, unspecified site; F17.210 Nicotine dependence, cigarettes, uncomplicated; Z79.82 Long term (current) use of aspirin; Z79.4 Long term (current) use of insulin; Z79.899 Other long term (current) drug therapy; Z95.5 Presence of coronary angioplasty implant and graft; Z85.038 Personal history of other malignant neoplasm of large intestine; Z85.46 Personal history of malignant neoplasm of prostate; Z90.49 Acquired absence of other specified parts of digestive tract; Z90.89 Acquired absence of other organs; Z79.02 Long term (current) use of antithrombotics/antiplatelets
CPT/HCPCS: 31500; 31720; 36415; 36556; 70450; 71045; 71260; 80048; 80053; 80069; 81001; 82550; 82803; 82947; 83735; 83880; 84100; 84145; 84403; 84478; 84484; 85014; 85018; 85025; 85027; 92526; 92610; 93005; 93010; 93308; 93321; 94002; 94660; 94762; 96374; 97110; 97162; 97167; 97535; 99285-25; A9270; C1751; G0103; J0171; J0330; J0360; J1100; J1265; J1650; J1815; J2060; J2543; J2920; J2930; J3010; J7030; J7050; J7060; Q9967